=== PATIENT | female | born 1950 | race Caucasian/White ===

== ENCOUNTER → 2020-06-09 09:13 | Outpatient (REF) | payer MEDICARE, OTHER, SELFPAY ==
--- NOTE | 2020-06-09 09:30 | CA_ITS ---
Transthoracic Echocardiogram Patient (Last, First, Middle): Kerry Ortega M Gender: Female Date of : 1950 Age: 69 Procedure Date: 06/09/2020 Procedure Type: Transthoracic Echocardiogram Location: OP Height: 165.1 cm Weight: 86.18 kg BSA: 1.94 m2 Heart Rate: bpm BP: 138 / 78 mmHg Personal Chef: ANURADHA Referring MD: Karri Presley MD Symptoms: I71.2 ASCENDING AA,I47.1 ATRIAL TACHYCARDIA, I35.1 A V DIS Study Quality: Good ECG Rhythm: Sinus Conclusions: - The left ventricular systolic function is normal. The visually estimated ejection fraction is between 65-70%. - There is mild aortic valve regurgitation. - There is mild dilatation of the ascending aorta measuring 4.30 cm. Findings Left Ventricle Normal left ventricular cavity size. There is normal left ventricular wall thickness. The left ventricular systolic function is normal. The visually estimated ejection fraction is between 65-70%. There is no evidence of regional wall motion abnormalities. Diastolic function is normal for age. Right Ventricle Normal right ventricular cavity size and systolic function. Atria The left atrium is normal in size. The right atrium is normal in size. Aortic Valve There is a normal trileaflet aortic valve. There is no aortic valve stenosis. There is mild aortic valve regurgitation. Mitral Valve The mitral valve appears normal. There is no mitral valve regurgitation. There is no mitral valve stenosis. Pulmonic Valve The pulmonic valve was not well visualized. Tricuspid Valve Normal tricuspid valve structure. There is trace tricuspid valve regurgitation. The pulmonary artery systolic pressure is normal. Great Vessels There is mild dilatation of the ascending aorta measuring 4.30 cm. Venous The inferior vena cava is normal in size and collapses greater than 50% with inspiration. Pericardium/Pleural There is no evidence of pericardial effusion. Prior Study Comparison Changes noted compared to prior study dated: 06/06/2020. See comments on ascending aorta. Measurements 2D Linear Measurements IVSd: 0.96 0.6-0.9/0.6-1.0 cm LVIDd: 5.26 3.9-5.3/4.2-5.9 cm LVIDd Index: 2.71 2.4-3.2/2.2-3.1 cm/m2 LVIDs: 3.61 2.0-3.6 cm LVPWd: 0.89 0.7-1.1 cm Ao Root: 3.60 2.1-3.5 cm LA Diam: 3.40 2.7-3.8/3.0-4.0 cm LAIDs Index: 1.75 1.5-2.3 cm/m2 LV Mass: 221.50 67-162/88-224 g LV Mass Index: 114.18 43-95/49-115 g/m2 LVOT Diam: 2.10 3.0+(-)1.3 cm 2D Systolic Function EF 4C: 71.00 >55% EF 2C: 65.90 >55% EF BiP: 68.50 >55% Mitral Valve E'Lateral: 6.96 E'Medial: 5.61 Aortic Valve AoV Pk Deshawn: 1.36 AoV Pk Grad: 7.00 AI Pk Deshawn: 4.16 AI [place]: 2.58 LVOT LVOT Pk Deshawn: 1.29 LVOT Mn Deshawn: 0.87 LVOT VTI: 0.30 LVOT Pk Grad: 7.00 LVOT Mn Grad: 3.00 LVOT Diam: 2.10 LVOT Area: 3.46 Diastolic Function E'Medial: 5.61 E' Laterial: 6.96 Tricuspid Valve TR Pk Deshawn: 2.34 TR Pk Grad: 22.00 RA Press: 3.00 RVSP: 25.00 Great Vessels Aorta Ao Root-2D: 3.60 2.0-3.7 cm Ao Asc: 4.30 2.1-3.4 cm Ao Arch: 3.50 Updated in Other Vendor System with Status of Final Lyndon Mathur MD electronically signed on 06/09/2020 1:35:22 PM with status of Final
== END ==
LOC: HO.CARD 09:13
PROVIDERS: PCP Internal Medicine; Visit Provider Internal Medicine Cardiovascular Disease
DX: I71.2 Thoracic aortic aneurysm, without rupture (principal); I47.1 Supraventricular tachycardia; I35.1 Nonrheumatic aortic (valve) insufficiency
CPT/HCPCS: 93306

== ENCOUNTER → 2020-06-29 09:26 | Outpatient (BNVA) | payer MEDICARE, OTHER, SELFPAY | PROVIDERS: PCP Internal Medicine; Referring Provider Internal Medicine; Visit Provider Internal Medicine Cardiovascular Disease | DX: I71.2 Thoracic aortic aneurysm, without rupture (principal); I35.1 Nonrheumatic aortic (valve) insufficiency; E78.01 Familial hypercholesterolemia; I49.3 Ventricular premature depolarization; I45.2 Bifascicular block | CPT/HCPCS: 93005; 99212 ==

== ENCOUNTER → 2021-06-28 09:16 | Outpatient (REF) | payer MEDICARE, OTHER, SELFPAY ==
--- NOTE | 2021-06-28 09:19 | CA_ITS ---
Transthoracic Echocardiogram Patient (Last, First, Middle): Kerry Ortega M Gender: Female Date of : 1950 Age: 70 Procedure Date: 06/28/2021 Procedure Type: Transthoracic Echocardiogram Location: OP Height: 165.1 cm Weight: 92.08 kg BSA: 1.99 m2 Heart Rate: bpm BP: 127 / 78 mmHg Lard Renderer: VH/CP Referring MD: Karri Presley MD Pool Hand: Karri Presley MD Symptoms: I71.2 - Thoracic aortic aneurysm, without rupture Study Quality: Fair ECG Rhythm: Sinus Conclusions: - 1. Normal LV systolic function with impaired relaxation filling pattern 2. Mild to moderate aortic regurgitation 3. Mildly dilated left atrium 4. Mildly dilated ascending aorta at 4.3 cm 5. Normal RV systolic pressure 6. No perica Findings Left Ventricle Normal left ventricular size, thickness, and systolic function. The visually estimated ejection fraction is between 60-65%. Spectral Doppler is indicative of an impaired relaxation filling pattern. E/E prime ratio is between 8 and 15 consistent with indeterminate filling pressures. Right Ventricle Normal right ventr effusionicular cavity size and systolic function. Atria The left atrium is mildly dilated. There is no evidence of interatrial shunt. The right atrium is normal in size. Aortic Valve The aortic valve structure and function is likely normal. There is no aortic valve stenosis. There is mild to moderate aortic valve regurgitation. Mitral Valve There is mild anterior mitral leaflet thickening. There is trace mitral valve regurgitation. There is no mitral valve stenosis. Pulmonic Valve The pulmonic valve is likely normal. There is trace to mild pulmonic valve regurgitation. Tricuspid Valve Normal tricuspid valve structure. There is trace tricuspid valve regurgitation. Normal right atrial pressure. There is no evidence of pulmonary hypertension. Great Vessels The pulmonary artery was not well visualized. There is mild dilatation of the ascending aorta measuring 4.30 cm. Venous The inferior vena cava is normal in size and collapses greater than 50% with inspiration. Pericardium/Pleural There is no evidence of pericardial effusion. Prior Study Comparison No significant change compared to prior study dated: 06/09/2020. Measurements 2D Linear Measurements IVSd: 1.05 0.6-0.9/0.6-1.0 cm LVIDd: 5.32 3.9-5.3/4.2-5.9 cm LVIDd Index: 2.67 2.4-3.2/2.2-3.1 cm/m2 LVIDs: 3.94 2.0-3.6 cm LVPWd: 1.03 0.7-1.1 cm Ao Root: 3.60 2.1-3.5 cm LA Diam: 3.20 2.7-3.8/3.0-4.0 cm LAIDs Index: 1.61 1.5-2.3 cm/m2 LV Mass: 264.84 67-162/88-224 g LV Mass Index: 133.09 43-95/49-115 g/m2 LVOT Diam: 2.10 3.0+(-)1.3 cm Mitral Valve MV Pk E: 0.50 MV PK A: 0.79 MV Decel Time: 222.00 E/A: 0.60 E'Lateral: 6.53 E'Medial: 5.00 E/E' Med: 10.00 E/E' Lat: 7.70 PHT: 65.00 MVA PHT: 3.38 Decel [place]: 2.26 Aortic Valve AoV Pk Deshawn: 1.47 AoV Mn Deshawn: 1.10 AoV VTI: 0.35 AoV Pk Grad: 9.00 Aov Mn Grad: 5.00 LUIS Cont.VTI: 2.57 AI Pk Deshawn: 4.66 AI [place]: 2.99 LVOT LVOT Pk Deshawn: 1.17 LVOT Mn Deshawn: 0.82 LVOT VTI: 0.26 LVOT Pk Grad: 5.00 LVOT Mn Grad: 3.00 LVOT Diam: 2.10 LVOT Area: 3.46 Diastolic Function MV Pk E: 0.50 MV Pk A: 0.79 E/A: 0.60 E'Medial: 5.00 E/E' Med: 10.00 E' Laterial: 6.53 E/E' Lat: 7.70 Tricuspid Valve TR Pk Deshawn: 1.52 TR Pk Grad: 9.00 RA Press: 3.00 RVSP: 12.00 Great Vessels Aorta Ao Root-2D: 3.60 2.0-3.7 cm Ao Asc: 4.30 2.1-3.4 cm Ao Arch: 3.30 Updated in Other Vendor System with Status of Final Karri Presley MD electronically signed on 06/28/2021 4:08:43 PM with status of Final
== END ==
LOC: HO.CARD 09:16
PROVIDERS: PCP Internal Medicine; Visit Provider Internal Medicine Cardiovascular Disease
DX: I71.2 Thoracic aortic aneurysm, without rupture (principal)
CPT/HCPCS: 93306

== ENCOUNTER → 2021-07-05 10:39 | Outpatient (BNVA) | payer MEDICARE, OTHER, SELFPAY | PROVIDERS: PCP Internal Medicine; Visit Provider Internal Medicine Cardiovascular Disease | DX: I71.2 Thoracic aortic aneurysm, without rupture (principal); I35.1 Nonrheumatic aortic (valve) insufficiency; I49.3 Ventricular premature depolarization; E78.01 Familial hypercholesterolemia | CPT/HCPCS: 93005; 99212 ==

== ENCOUNTER → 2022-07-05 12:34 | Outpatient (REF) | payer MEDICARE, OTHER, SELFPAY ==
--- NOTE | 2022-07-05 12:54 | CA_ITS ---
Transthoracic Echocardiogram Patient (Last, First, Middle): Kerry Ortega M Gender: Female Date of : 1950 Age: 71 Procedure Date: 07/05/2022 Procedure Type: Transthoracic Echocardiogram Location: OP Height: 165.1 cm Weight: 96.16 kg BSA: 2.03 m2 Heart Rate: bpm BP: 178 / 82 mmHg Accounting Generalist: NESHA Referring MD: Karri Presley MD Symptoms: I71.2 - Thoracic aortic aneurysm, without rupture Study Quality: Adequate ECG Rhythm: Sinus Conclusions: - The left ventricular systolic function is normal. The calculated ejection fraction is 64% by biplane method. - There is mild aortic valve regurgitation. - There is mild dilatation of the sinuses of Valsalva measuring 4.16 cm and mild dilatation of the ascending aorta measuring 4.30 cm. Findings Left Ventricle Normal left ventricular cavity size. There is mildly increased left ventricular wall thickness. The left ventricular systolic function is normal. The calculated ejection fraction is 64% by biplane method. There is no evidence of regional wall motion abnormalities. Diastolic function is normal for age. There is moderate septal asymmetric hypertrophy. Right Ventricle Normal right ventricular cavity size and systolic function. Atria Top-normal left atrial size. The right atrium is normal in size. Aortic Valve There is a normal trileaflet aortic valve. There is no aortic valve stenosis. There is mild aortic valve regurgitation. Mitral Valve The mitral valve appears normal. There is trace mitral valve regurgitation. There is no mitral valve stenosis. Pulmonic Valve The pulmonic valve is likely normal. Tricuspid Valve There is trace tricuspid valve regurgitation. Tricuspid regurgitation envelope is inadequate for calculation of right ventricular systolic pressure. Great Vessels There is mild dilatation of the sinuses of Valsalva measuring 4.16 cm and mild dilatation of the ascending aorta measuring 4.30 cm. Venous The inferior vena cava is normal in size and collapses greater than 50% with inspiration. Pericardium/Pleural There is no evidence of pericardial effusion. Prior Study Comparison No significant change compared to prior study dated: 06/28/2021. Measurements 2D Linear Measurements IVSd: 1.35 0.6-0.9/0.6-1.0 cm LVIDd: 4.76 3.9-5.3/4.2-5.9 cm LVIDd Index: 2.34 2.4-3.2/2.2-3.1 cm/m2 LVIDs: 3.49 2.0-3.6 cm LVPWd: 1.05 0.7-1.1 cm LA Diam: 3.50 2.7-3.8/3.0-4.0 cm LAIDs Index: 1.72 1.5-2.3 cm/m2 LV Mass: 269.58 67-162/88-224 g LV Mass Index: 132.80 43-95/49-115 g/m2 LVOT Diam: 2.20 3.0+(-)1.3 cm 2D Systolic Function EF 4C: 60.60 >55% EF 2C: 65.90 >55% EF BiP: 63.70 >55% Mitral Valve MV Pk E: 0.66 MV PK A: 0.72 MV Decel Time: 202.00 E/A: 0.90 E'Lateral: 8.92 E'Medial: 5.98 E/E' Med: 11.00 E/E' Lat: 7.40 PHT: 59.00 MVA PHT: 3.73 Decel [place]: 3.27 Aortic Valve AoV Pk Deshawn: 1.31 AoV Mn Deshawn: 0.98 AoV VTI: 0.32 AoV Pk Grad: 7.00 Aov Mn Grad: 4.00 LUIS Cont.VTI: 2.99 AI Pk Deshawn: 4.94 AI [place]: 3.43 LVOT LVOT Pk Deshawn: 1.06 LVOT Mn Deshawn: 0.68 LVOT VTI: 0.25 LVOT Pk Grad: 4.00 LVOT Mn Grad: 2.00 LVOT Diam: 2.20 LVOT Area: 3.80 Diastolic Function MV Pk E: 0.66 MV Pk A: 0.72 E/A: 0.90 E'Medial: 5.98 E/E' Med: 11.00 E' Laterial: 8.92 E/E' Lat: 7.40 Right Ventricle TAPSE (mm): 25.80 TVS' Deshawn: 9.25 Tricuspid Valve RA Press: 3.00 Great Vessels Aorta Sinus of Valsalva: 4.16 2.0-3.[address] [place]: 3.30 1.7-3.4 cm Ao Asc: 4.30 2.1-3.4 cm Updated in Other Vendor System with Status of Final Lyndon Mathur MD electronically signed on 07/06/2022 10:58:26 AM with status of Final
== END ==
LOC: HO.CARD 12:34
PROVIDERS: Visit Provider Internal Medicine Cardiovascular Disease
DX: I71.20 Thoracic aortic aneurysm, without rupture, unspecified (principal)
CPT/HCPCS: 93306

== ENCOUNTER → 2022-07-07 10:30 | Outpatient (BNVA) | payer MEDICARE, OTHER, SELFPAY | PROVIDERS: PCP Internal Medicine; Visit Provider Internal Medicine Cardiovascular Disease | DX: I71.20 Thoracic aortic aneurysm, without rupture, unspecified (principal); I35.1 Nonrheumatic aortic (valve) insufficiency; I49.3 Ventricular premature depolarization; I45.2 Bifascicular block; E78.01 Familial hypercholesterolemia | CPT/HCPCS: 93005; 99212 ==

== ENCOUNTER 2023-03-06 13:11 | Outpatient (AMB) | payer MEDICARE, OTHER, SELFPAY ==
[2023-03-06 13:14] VITALS: BP 144/88; PULSE 88; BMI 35.2
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
== END 2023-03-06 13:55 | disposition home or self-care (01) ==
PROVIDERS: Visit Provider Internal Medicine Cardiovascular Disease
DX: R09.89 Other specified symptoms and signs involving the circulatory and respiratory systems (principal); I49.3 Ventricular premature depolarization; I71.20 Thoracic aortic aneurysm, without rupture, unspecified
CPT/HCPCS: 99214

== ENCOUNTER → 2023-03-06 13:11 | Outpatient (BNVA) | payer MEDICARE, OTHER, SELFPAY | PROVIDERS: Visit Provider Internal Medicine Cardiovascular Disease | DX: R09.89 Other specified symptoms and signs involving the circulatory and respiratory systems (principal); I49.3 Ventricular premature depolarization; I71.20 Thoracic aortic aneurysm, without rupture, unspecified | CPT/HCPCS: 99212 ==

== ENCOUNTER → 2023-07-06 09:38 | Outpatient (REF) | payer MEDICARE, OTHER, SELFPAY ==
--- NOTE | 2023-07-06 09:41 | CA_ITS ---
Transthoracic Echocardiogram Patient (Last, First, Middle): Kerry Ortega M Gender: Female Date of : 1950 Age: 72 Procedure Date: 07/06/2023 Procedure Type: Transthoracic Echocardiogram Location: OP Height: 165.1 cm Weight: 102.06 kg BSA: 2.08 m2 Heart Rate: 65 bpm BP: 160 / 88 mmHg Barrel Loader And Cleaner: SB Referring MD: Karri Presley MD Symptoms: I71.2 - Thoracic aortic aneurysm, without rupture Study Quality: Fair but adequate ECG Rhythm: Sinus Conclusions: - 1. Normal LV ejection fraction of 60 65% with impaired relaxation filling pattern 2. Mildly dilated left atrium 3. [id number] aortic regurgitation 4. Mildly dilated ascending aorta at 4.1 cm 5. No gross pericardial effusion Findings Left Ventricle Normal left ventricular size, thickness, and systolic function. The visually estimated ejection fraction is between 60-65%. Spectral Doppler is indicative of an impaired relaxation filling pattern. E/E prime ratio is between 8 and 15 consistent with indeterminate filling pressures. Peak GLS is -16.9%, mildly reduced. Right Ventricle Normal right ventricular cavity size and systolic function. Atria The left atrium is mildly dilated. Interatrial shunt cannot be excluded. The right atrium is normal in size. Aortic Valve Normal aortic valve structure and function. There is no aortic valve stenosis. There is mild to moderate aortic valve regurgitation. Mitral Valve Normal mitral valve structure and function. There is trace mitral valve regurgitation. There is no mitral valve stenosis. Pulmonic Valve The pulmonic valve is likely normal. There is trace pulmonic valve regurgitation. Tricuspid Valve Normal tricuspid valve structure. There is trace tricuspid valve regurgitation. The right ventricular systolic pressure is normal. The right ventricular systolic pressure is 24 mmHg. Normal right atrial pressure. There is no evidence of pulmonary hypertension. Great Vessels The pulmonary artery was not well visualized. There is mild dilatation of the ascending aorta measuring 4.10 cm. Venous The inferior vena cava is normal in size and collapses greater than 50% with inspiration. Pericardium/Pleural There is no evidence of pericardial effusion. Prior Study Comparison No significant change compared to prior study dated: 07/05/2022. Measurements 2D Linear Measurements IVSd: 1.21 0.6-0.9/0.6-1.0 cm LVIDd: 4.78 3.9-5.3/4.2-5.9 cm LVIDd Index: 2.30 2.4-3.2/2.2-3.1 cm/m2 LVIDs: 3.54 2.0-3.6 cm LVPWd: 0.95 0.7-1.1 cm LA Diam: 3.80 2.7-3.8/3.0-4.0 cm LAIDs Index: 1.83 1.5-2.3 cm/m2 LV Mass: 227.03 67-162/88-224 g LV Mass Index: 109.15 43-95/49-115 g/m2 LVOT Diam: 2.20 3.0+(-)1.3 cm Mitral Valve MV Pk E: 0.70 MV PK A: 0.70 MV Decel Time: 204.00 E/A: 1.00 E'Lateral: 7.72 E'Medial: 5.00 E/E' Med: 14.10 E/E' Lat: 9.10 PHT: 60.00 MVA PHT: 3.67 Decel [place]: 3.44 Aortic Valve AoV Pk Deshawn: 1.28 AoV Pk Grad: 7.00 LUIS: 3.38 AI Pk Deshawn: 4.62 AI VTI: 2.37 AI [place]: 2.73 LVOT LVOT Pk Deshawn: 1.19 LVOT Mn Deshawn: 0.84 LVOT VTI: 0.28 LVOT Pk Grad: 6.00 LVOT Mn Grad: 3.00 LVOT Diam: 2.20 LVOT Area: 3.80 Diastolic Function MV Pk E: 0.70 MV Pk A: 0.70 E/A: 1.00 E'Medial: 5.00 E/E' Med: 14.10 E' Laterial: 7.72 E/E' Lat: 9.10 Right Ventricle TAPSE (mm): 19.90 TVS' Deshawn: 11.30 Tricuspid Valve TR Pk Deshawn: 2.27 TR Pk Grad: 21.00 RA Press: 3.00 RVSP: 24.00 Great Vessels Aorta Sinus of Valsalva: 4.10 2.0-3.5 cm Ao Asc: 4.10 2.1-3.4 cm Ao Arch: 2.90 Ao Desc: 2.10 Pulmonary Valve PV Pk Deshawn: 0.73 Peak PV Grad: 2.00 Updated in Other Vendor System with Status of Final Karri Presley MD electronically signed on 07/07/2023 1:44:23 PM with status of Final
== END ==
LOC: HO.CARD 09:38
PROVIDERS: PCP Internal Medicine; Visit Provider Internal Medicine Cardiovascular Disease
DX: I71.20 Thoracic aortic aneurysm, without rupture, unspecified (principal)
CPT/HCPCS: 93306; 93356

== ENCOUNTER → 2023-07-06 09:41 | Outpatient (BNV) | payer MEDICARE, OTHER, SELFPAY | PROVIDERS: PCP Internal Medicine; Visit Provider Internal Medicine Cardiovascular Disease | DX: I35.1 Nonrheumatic aortic (valve) insufficiency (principal) | CPT/HCPCS: 93306 ==

== ENCOUNTER 2023-07-10 10:38 | Outpatient (AMB) | payer MEDICARE, OTHER, SELFPAY ==
[2023-07-10 10:44] VITALS: BP 120/76; PULSE 72; BMI 35.2
--- NOTE | 2023-07-10 10:44 | MHC.OFFVIS ---
Intake Vital Signs 07/10/23 10:44 Height 5 ft 6 in Weight 218 lb 4.122 oz BMI 35.2 BP 120/76 Blood Pressure Location Lt brachial Position Sitting Pulse 72 Intake Visit Reasons: 4 MON FUP AFTER ECHO Intake Note: 4 month follow-up after echo with ekg hearts doing ok Analytical Lab Technician Required: No Allergies alirocumab [From Praluent Pen] Allergy (Intermediate, Verified 06/29/20 15:16) rash amoxicillin [Augmentin] Allergy (Unknown, Verified 06/29/20 10:26) unknown atorvastatin [Lipitor] Allergy (Unknown, Verified 05/30/19 00:00) myalgia cephalexin [Keflex] Allergy (Unknown, Verified 06/29/20 10:26) unknown clavulanic acid [Augmentin] Allergy (Unknown, Verified 06/29/20 10:26) unknown cyclobenzaprine [From Flexeril] Allergy (Unknown, Verified 06/29/20 10:26) unknown ezetimibe [Zetia] Allergy (Unknown, Verified 05/30/19 00:00) myalgia fentanyl Allergy (Unknown, Verified 06/29/20 10:26) unknown lamotrigine [From Lamictal] Allergy (Unknown, Unverified 04/23/20 17:57) ANAPHYLAXIS latex [Latex] Allergy (Unknown, Unverified 04/23/20 17:57) HIVES metaxalone [From Skelaxin] Allergy (Unknown, Unverified 04/23/20 17:57) ANAPHYLAXIS montelukast [Singulair] Allergy (Unknown, Verified 06/29/20 10:26) unknown naratriptan Allergy (Unknown, Verified 06/29/20 10:26) unknown oxcarbazepine [Trileptal] Allergy (Unknown, Verified 06/29/20 10:26) unknown pneumococcal vaccine [Pneumococcal Vaccine] Allergy (Unknown, Unverified 04/23/20 17:57) SWELLING pravastatin Allergy (Unknown, Verified 05/30/19 00:00) myalgia rosuvastatin [Crestor] Allergy (Unknown, Verified 05/30/19 00:00) myalgia simvastatin Allergy (Unknown, Verified 05/30/19 00:00) myalgia Sulfa (Sulfonamide Antibiotics) Allergy (Unknown, Verified 06/29/20 10:26) unknown sumatriptan [From Imitrex] Allergy (Unknown, Unverified 04/23/20 17:57) INVOLUNTARY SPASMS trimethoprim [From Bactrim] Allergy (Unknown, Unverified 04/23/20 17:57) ANAPHYLAXIS From Keflex Allergy (Unknown, Uncoded 04/23/20 17:57) ANAPHYLAXIS From Singulair Allergy (Unknown, Uncoded 04/23/20 17:57) ANAPHYLAXIS From Tolectin Allergy (Unknown, Uncoded 04/23/20 17:57) HIVES Latex Gloves Allergy (Unknown, Uncoded 06/29/20 10:26) Unknown Mycelex Allergy (Unknown, Uncoded 06/29/20 10:26) unknown Mysoline Allergy (Unknown, Uncoded 06/29/20 10:26) unknown Medication List - Last Reconciled 07/10/23 by Karri Presley MD almotriptan malate 12.5 mg PO Q4H PRN buspirone 15 mg PO TID clonazepam 0.5 mg PO PRN denosumab mg subcut epinephrine IM estradiol 0.01%(0.1mg/gram) vaginal evolocumab (Repatha SureClick) 140 mg subcut Q2W 90 days melatonin 3 mg PO .qhs metoprolol succinate ER 50 mg PO DAILY mupirocin 2% topical TID omeprazole 40 mg PO sertraline 200 mg PO DAILY tizanidine 6 mg PO PRN topiramate 100 mg PO BID HPI HPI Comments History of Present Illness Details Kerry comes for follow-up. She denies any new cardiac complaints except for occasional palpitations consistent with PVCs. She also has occasional fast heart rate for which she takes extra metoprolol. No exertional chest pain or shortness of breath. Blood pressure still remaining elevated mostly rising in the early afternoon and going up to 170 systolic in the nighttime. Recent echocardiogram shows stable ascending aortic aneurysm and stable aortic regurgitation. No lightheadedness, syncope. No heart failure symptoms. [facility] Medical History Bifascicular block PVCs (premature ventricular contractions) Selective immunoglobulin A deficiency Statin intolerance Heterozygous familial hypercholesterolemia Aortic regurgitation Ascending aortic aneurysm Surgical History History of laparoscopic cholecystectomy (~11/2018) Family History Father History of heart bypass surgery CVD (cardiovascular disease) Mother No problems noted. Review of Systems Const Denies chills, Denies fatigue, Denies fever(s), Denies frequent falls, Denies weakness, Denies weight gain and Denies weight loss ENT Denies dizziness Card Denies chest pain, Denies leg edema, Denies lightheadedness, Denies palpitations, Denies dyspnea, Denies dyspnea on exertion, Denies orthopnea and Denies other (loss of consciousness) Resp Denies cough, Denies dyspnea and Denies dyspnea on exertion GI Denies hematochezia and Denies change in stool character Musc Denies abnormal gait, Denies muscle weakness, Denies numbness, Denies radiating pain into limb and Denies tingling Neuro Denies abnormal gait, Denies dizziness, Denies frequent falls, Denies numbness, Denies tingling and Denies weakness Endo Denies fatigue and Denies palpitations Physical Exam Vital Signs: Last Vital Signs Pulse 72 07/10/23 10:44 BP 120/76 07/10/23 10:44 BMI result Body Mass Index 35.2 Const General: cooperative, comfortable, alert and awake Nutritional Appearance: obese Orientation/consciousness: patient oriented x3 Limitations: no limitations Eyes General: appearance normal, both eyes and all related structures Neck Neck: Yes trachea midline, Yes supple and Yes no JVD Carotids: other ( no carotid bruit) Chest Chest palpation & inspection: normal inspection of the chest Resp Effort & Inspection: normal respiratory effort Auscultation: clear to auscultation bilaterally Cardio Palpation: normal PMI Rate: regular rate Rhythm: regular rhythm Heart sounds: S1 normal heart sound present, S2 normal heart sound present and Murmur heart sound present ( early diastolic murmur best heard in the left intercostal space in leaning) Peripheral pulses: Peripheral pulses 2+ throughout GI Inspection: Yes obesity Auscultation: normal bowel sounds Skin General skin exam: no rashes or lesions noted Neuro General: patient oriented x3 and no focal motor deficits Extrem General: Yes no clubbing, cyanosis or edema Psych Appearance: grossly normal Affect: Anxious affect present Office Procedures EKG Details: EKG shows normal sinus rhythm with right bundle-branch block and left anterior fascicular block with voltage criteria for LVH, unchanged from before 27005-[id number], Complete Assessment & Plan Assessment & Plan (1) Labile blood pressure: Code(s): R09.89 - Other specified symptoms and signs involving the circulatory and respiratory systems Plan: Patient with labile blood pressures still having elevated blood pressure in the evening time. Importance of good control of this was discussed. Stress mitigation strategies to be pursued. Advise valsartan 40 mg at noon time. Advised to monitor blood pressure at home. Follow-up basic metabolic profile in 2 weeks time. Continue metoprolol. (2) Ascending aortic aneurysm: Code(s): I71.2 - Thoracic aortic aneurysm, without rupture Plan: Mild ascending aortic aneurysm which has remained stable for a long time. Continue to monitor by echocardiogram on annual basis. No change in therapy. Continue aggressive blood pressure control as above. Continue aggressive control of cholesterol as well. (3) Heterozygous familial hypercholesterolemia: Code(s): E78.01 - Familial hypercholesterolemia Plan: Familial hyperlipidemia currently on PCSK9 inhibitor therapy. Tolerating this therapy well. Advised lipid panel near future to assess response. Importance of control of this to reduce future vascular events was discussed. She understands and agrees. (4) PVCs (premature ventricular contractions): Code(s): I49.3 - Ventricular premature depolarization Plan: Highly symptomatic PVCs which remain predominantly suppressed on metoprolol therapy. Doing well with it. Avoidance of stimulants was discussed. Stress mitigation strategies was advised. (5) Bifascicular block: Code(s): I45.2 - Bifascicular block Plan: Bifascicular block on EKG, chronic. No change in treatment or interventions required. Follow annually by EKG. Will follow up in the clinic in 1 year's time, sooner p.r.n.. Thank you for allowing me to partake in her care Orders: Orders Lipid Panel 2 Weeks E78.01 - Familial hypercholesterolemia, I25.10 - Atherosclerotic heart disease of [place] coronary artery without angina pectoris CA echo transthoracic complete 50 Weeks I71.2 - Thoracic aortic aneurysm, without rupture Basic Metabolic Panel 2 Weeks R09.89 - Other specified symptoms and signs involving the circulatory and respiratory systems Medications: New valsartan At noon time 40 mg PO DAILY 30 tabs 11RF 30 days Coding Level of Care Code Est Pt Level 4 (02989) Diagnoses Labile blood pressure R09.89 Ascending aortic aneurysm I71.2 Heterozygous familial hypercholesterolemia E78.01 PVCs (premature ventricular contractions) I49.3 Bifascicular block I45.2 CPT Codes EKG - CPT: 95605-[id number], Complete ([id number])
== END 2023-07-10 11:38 | disposition home or self-care (01) ==
PROVIDERS: Visit Provider Internal Medicine Cardiovascular Disease
DX: R09.89 Other specified symptoms and signs involving the circulatory and respiratory systems (principal); I71.20 Thoracic aortic aneurysm, without rupture, unspecified; E78.01 Familial hypercholesterolemia; I49.3 Ventricular premature depolarization; I45.2 Bifascicular block
CPT/HCPCS: 93010; 99214

== ENCOUNTER → 2023-07-10 10:38 | Outpatient (BNVA) | payer MEDICARE, OTHER, SELFPAY | PROVIDERS: Visit Provider Internal Medicine Cardiovascular Disease | DX: R09.89 Other specified symptoms and signs involving the circulatory and respiratory systems (principal); I71.20 Thoracic aortic aneurysm, without rupture, unspecified; I49.3 Ventricular premature depolarization; I45.2 Bifascicular block; E78.01 Familial hypercholesterolemia | CPT/HCPCS: 93005; 99212 ==

== ENCOUNTER 2023-07-26 06:58 | Outpatient (REF) | payer MEDICARE, OTHER, SELFPAY ==
[2023-07-26 12:03] LABS: Anion Gap 13 (12-20); Blood Urea Nitrogen 11 mg/dL (9-16); Calcium 9.1 mg/dL (8.4-10.2); Carbon Dioxide 24 mmol/L (22-29); Chloride 110 mmol/L (96-108); Cholesterol 228 mg/dL (<200); Estimated Glomerular Filt Rate > 60; Glucose Random 99 mg/dL (60-115); HDL Cholesterol 64 mg/dL (>40); LDL Cholesterol Calculated 135 mg/dL (<100); Potassium 3.5 mmol/L (3.3-5.1); Sodium 143 mmol/L (135-145); Triglycerides 149 mg/dL (<150)
== END 2023-07-26 06:59 | disposition home or self-care (01) ==
LOC: HO.HMGCLDS 06:58
PROVIDERS: PCP Internal Medicine; Visit Provider Internal Medicine Cardiovascular Disease
DX: I25.10 Atherosclerotic heart disease of native coronary artery without angina pectoris (principal); E78.01 Familial hypercholesterolemia; R09.89 Other specified symptoms and signs involving the circulatory and respiratory systems
CPT/HCPCS: 36415; 80048; 80061

== ENCOUNTER 2023-10-25 09:43 | Outpatient (AMB) | payer MEDICARE, OTHER, SELFPAY ==
[2023-10-25 09:48] VITALS: BP 128/76; PULSE 82; BMI 34.9
--- NOTE | 2023-10-25 09:48 | A.OFFVIS_ITS ---
Intake Vital Signs 10/25/23 09:48 Height 5 ft 6 in Weight 216 lb 0.848 oz BMI 34.9 BP 128/76 Blood Pressure Location Lt brachial Position Sitting Pulse 82 Intake Visit Reasons: Discuss valsartan /BP Intake Note: Patient requested follow-up to review BP after increasing Valsartan Cloth Hauler Required: No Allergies amlodipine Allergy (Severe, Verified 09/06/23 15:52) Angioedema alirocumab [From Praluent Pen] Allergy (Intermediate, Verified 06/29/20 15:16) rash amoxicillin [Augmentin] Allergy (Unknown, Verified 06/29/20 10:26) unknown atorvastatin [Lipitor] Allergy (Unknown, Verified 05/30/19 00:00) myalgia cephalexin [Keflex] Allergy (Unknown, Verified 06/29/20 10:26) unknown clavulanic acid [Augmentin] Allergy (Unknown, Verified 06/29/20 10:26) unknown cyclobenzaprine [From Flexeril] Allergy (Unknown, Verified 06/29/20 10:26) unknown ezetimibe [Zetia] Allergy (Unknown, Verified 05/30/19 00:00) myalgia fentanyl Allergy (Unknown, Verified 06/29/20 10:26) unknown lamotrigine [From Lamictal] Allergy (Unknown, Unverified 04/23/20 17:57) ANAPHYLAXIS latex [Latex] Allergy (Unknown, Unverified 04/23/20 17:57) HIVES metaxalone [From Skelaxin] Allergy (Unknown, Unverified 04/23/20 17:57) ANAPHYLAXIS montelukast [Singulair] Allergy (Unknown, Verified 06/29/20 10:26) unknown naratriptan Allergy (Unknown, Verified 06/29/20 10:26) unknown oxcarbazepine [Trileptal] Allergy (Unknown, Verified 06/29/20 10:26) unknown pneumococcal vaccine [Pneumococcal Vaccine] Allergy (Unknown, Unverified 04/23/20 17:57) SWELLING pravastatin Allergy (Unknown, Verified 05/30/19 00:00) myalgia rosuvastatin [Crestor] Allergy (Unknown, Verified 05/30/19 00:00) myalgia simvastatin Allergy (Unknown, Verified 05/30/19 00:00) myalgia Sulfa (Sulfonamide Antibiotics) Allergy (Unknown, Verified 06/29/20 10:26) unknown sumatriptan [From Imitrex] Allergy (Unknown, Unverified 04/23/20 17:57) INVOLUNTARY SPASMS trimethoprim [From Bactrim] Allergy (Unknown, Unverified 04/23/20 17:57) ANAPHYLAXIS From Keflex Allergy (Unknown, Uncoded 04/23/20 17:57) ANAPHYLAXIS From Singulair Allergy (Unknown, Uncoded 04/23/20 17:57) ANAPHYLAXIS From Tolectin Allergy (Unknown, Uncoded 04/23/20 17:57) HIVES Latex Gloves Allergy (Unknown, Uncoded 06/29/20 10:26) Unknown Mycelex Allergy (Unknown, Uncoded 06/29/20 10:) unknown Mysoline Allergy (Unknown, Uncoded 06/29/20 10:) unknown Medication List - Last Reconciled 10/25/23 by Karri Presley MD almotriptan malate 12.5 mg PO Q4H PRN buspirone 15 mg PO TID clonazepam 0.5 mg PO PRN denosumab mg subcut epinephrine IM estradiol 0.01%(0.1mg/gram) vaginal evolocumab (Repatha SureClick) 140 mg subcut Q2W 90 days melatonin 3 mg PO .qhs metoprolol succinate ER 50 mg PO DAILY mupirocin 2% topical TID omeprazole 40 mg PO sertraline 175 mg PO DAILY tizanidine 6 mg PO PRN topiramate 100 mg PO BID valsartan 80 mg PO BID HPI HPI Comments History of Present Illness Details Kerry comes for follow-up to check her blood pressure. Her blood pressure recordings have been labile but generally most of them are below systolic 140. She has not having any symptoms. No chest pain, lightheadedness, syncope. No heart failure symptoms. She has been getting more short of breath but her limiting factor is back pain with any activity which limits her from exercising. She does notice exertional shortness of breath when she goes up a flight of stairs. [facility] Medical History Bifascicular block PVCs (premature ventricular contractions) Selective immunoglobulin A deficiency Statin intolerance Heterozygous familial hypercholesterolemia Aortic regurgitation Ascending aortic aneurysm Surgical History History of laparoscopic cholecystectomy (~11/2018) Family History Father History of heart bypass surgery CVD (cardiovascular disease) Mother No problems noted. Review of Systems Const Denies chills, Denies fatigue, Denies fever(s), Denies frequent falls, Denies weakness, Denies weight gain and Denies weight loss ENT Denies dizziness Card Denies chest pain, Denies leg edema, Denies lightheadedness, Denies palpitations, Denies dyspnea, Denies dyspnea on exertion, Denies orthopnea and Denies other (loss of consciousness) Resp Denies cough, Denies dyspnea and Denies dyspnea on exertion GI Denies hematochezia and Denies change in stool character Musc Denies abnormal gait, Denies muscle weakness, Denies numbness, Denies radiating pain into limb and Denies tingling Neuro Denies abnormal gait, Denies dizziness, Denies frequent falls, Denies numbness, Denies tingling and Denies weakness Endo Denies fatigue and Denies palpitations Physical Exam Vital Signs: Last Vital Signs Pulse 82 10/25/23 09:48 BP 128/76 10/25/23 09:48 BMI result Body Mass Index 34.9 Const General: cooperative, comfortable, alert and awake Nutritional Appearance: obese Orientation/consciousness: patient oriented x3 Limitations: no limitations Eyes General: appearance normal, both eyes and all related structures Neck Neck: Yes trachea midline, Yes supple and Yes no JVD Carotids: other ( no carotid bruit) Chest Chest palpation & inspection: normal inspection of the chest Resp Effort & Inspection: normal respiratory effort Auscultation: clear to auscultation bilaterally Cardio Palpation: normal PMI Rate: regular rate Rhythm: regular rhythm Heart sounds: S1 normal heart sound present, S2 normal heart sound present and Murmur heart sound present ( early diastolic murmur best heard in the left intercostal space in leaning) Peripheral pulses: Peripheral pulses 2+ throughout GI Inspection: Yes obesity Auscultation: normal bowel sounds Skin General skin exam: no rashes or lesions noted Neuro General: patient oriented x3 and no focal motor deficits Extrem General: Yes no clubbing, cyanosis or edema Psych Appearance: grossly normal Affect: Anxious affect present Assessment & Plan Assessment & Plan (1) Labile blood pressure: Code(s): R09.89 - Other specified symptoms and signs involving the circulatory and respiratory systems Plan: Labile blood pressure which is generally well controlled with twice a day valsartan therapy. I have also advised her to split her metoprolol to twice a day. Continue monitor blood pressure but not so frequently as this may affect t he blood pressure readings. Also treatment of her anxiety was discussed. Stress mitigation strategies pursued. Low-salt diet and adequate fluid intake was discussed. Orthostatic precautions were discussed. Will follow up in 1 month's time with nurse visit and calibrate her home blood pressure machine. (2) Ascending aortic aneurysm: Code(s): I71.2 - Thoracic aortic aneurysm, without rupture Plan: Mild ascending aortic aneurysm with aortic regurgitation which has remained stable. No interventions required. Continue control of blood pressure with goal blood pressure generally less than 140 systolic would be adequate given her markedly labile blood pressures. Advised to avoid sudden strenuous isometric exercise. Follow up in the clinic in July. Thank you for allowing me to partake in the care Coding Level of Care Code Est Pt Level 4 (71352) Diagnoses Labile blood pressure R09.89 Ascending aortic aneurysm I71.2
== END 2023-10-25 10:15 | disposition home or self-care (01) ==
PROVIDERS: PCP Internal Medicine; Visit Provider Internal Medicine Cardiovascular Disease
DX: R09.89 Other specified symptoms and signs involving the circulatory and respiratory systems (principal); I71.20 Thoracic aortic aneurysm, without rupture, unspecified
CPT/HCPCS: 99214

== ENCOUNTER → 2023-10-25 09:43 | Outpatient (BNVA) | payer MEDICARE, OTHER, SELFPAY | PROVIDERS: PCP Internal Medicine; Visit Provider Internal Medicine Cardiovascular Disease | DX: R09.89 Other specified symptoms and signs involving the circulatory and respiratory systems (principal); I71.40 Abdominal aortic aneurysm, without rupture, unspecified | CPT/HCPCS: 99212 ==

== ENCOUNTER → 2023-11-22 10:05 | Outpatient (BNVA) | payer MEDICARE, OTHER, SELFPAY | PROVIDERS: PCP Internal Medicine; Visit Provider Internal Medicine Cardiovascular Disease ==

== ENCOUNTER → 2024-07-09 10:39 | Outpatient (REF) | payer MEDICARE, OTHER, SELFPAY ==
--- NOTE | 2024-07-09 10:46 | CA_ITS ---
Transthoracic Echocardiogram Patient (Last, First, Middle): Kerry Ortega M Gender: Female Date of : 1950 Age: 73 Procedure Date: 07/09/2024 Procedure Type: Transthoracic Echocardiogram Location: OP Height: 165.1 cm Weight: 97.98 kg BSA: 2.04 m2 Heart Rate: 77 bpm BP: 124 / 68 mmHg Admissions Evaluator: SB Referring MD: Karri Presley MD Symptoms: I71.2 - Thoracic aortic aneurysm, without rupture Study Quality: Adequate ECG Rhythm: Sinus Conclusions: - The left ventricular systolic function is normal. The calculated ejection fraction is 64% by biplane method. - There is mild aortic valve regurgitation. - There is mild dilatation of the ascending aorta measuring 4.30 cm. Findings Left Ventricle Normal left ventricular cavity size. The left ventricular systolic function is normal. The calculated ejection fraction is 64% by biplane method. There is no evidence of regional wall motion abnormalities. Diastolic function is normal for age. There is mild septal asymmetric hypertrophy. Right Ventricle Normal right ventricular cavity size and systolic function. Atria Both atria are normal in size. Aortic Valve There is a normal trileaflet aortic valve. There is no aortic valve stenosis. There is mild aortic valve regurgitation. Mitral Valve The mitral valve appears normal. There is trace mitral valve regurgitation. There is no mitral valve stenosis. Pulmonic Valve The pulmonic valve is likely normal. Tricuspid Valve Normal tricuspid valve structure. There is no tricuspid valve regurgitation. Tricuspid regurgitation envelope is inadequate for calculation of right ventricular systolic pressure. Great Vessels The aortic arch is normal in size. There is mild dilatation of the ascending aorta measuring 4.30 cm. Venous The inferior vena cava is normal in size and collapses greater than 50% with inspiration. Pericardium/Pleural There is no evidence of pericardial effusion. Prior Study Comparison No significant change compared to prior study dated: 07/06/2023. Measurements 2D Linear Measurements IVSd: 1.25 0.6-0.9/0.6-1.0 cm LVIDd: 4.52 3.9-5.3/4.2-5.9 cm LVIDd Index: 2.22 2.4-3.2/2.2-3.1 cm/m2 LVIDs: 3.09 2.0-3.6 cm LA Diam: 3.50 2.7-3.8/3.0-4.0 cm LAIDs Index: 1.72 1.5-2.3 cm/m2 LVOT Diam: 2.20 3.0+(-)1.3 cm 2D Systolic Function EF 4C: 62.60 >55% EF 2C: 67.70 >55% EF BiP: 63.80 >55% Mitral Valve MV Pk E: 0.45 MV PK A: 0.59 MV Decel Time: 217.00 E/A: 0.80 E'Lateral: 7.40 E'Medial: 5.55 E/E' Med: 8.00 E/E' Lat: 6.00 PHT: 64.00 MVA PHT: 3.44 Decel [place]: 2.05 Aortic Valve AoV Pk Deshawn: 1.37 AoV Mn Deshawn: 0.94 AoV VTI: 0.29 AoV Pk Grad: 8.00 Aov Mn Grad: 4.00 LUIS Cont.VTI: 3.20 AI Pk Deshawn: 4.25 AI VTI: 2.20 AI [place]: 2.49 LVOT LVOT Pk Deshawn: 1.16 LVOT Mn Deshawn: 0.82 LVOT VTI: 0.25 LVOT Pk Grad: 5.00 LVOT Mn Grad: 3.00 LVOT Diam: 2.20 LVOT Area: 3.80 Diastolic Function MV Pk E: 0.45 MV Pk A: 0.59 E/A: 0.80 E'Medial: 5.55 E/E' Med: 8.00 E' Laterial: 7.40 E/E' Lat: 6.00 Right Ventricle TAPSE (mm): 18.00 TVS' Deshawn: 10.40 Tricuspid Valve RA Press: 3.00 Great Vessels Aorta Sinus of Valsalva: 3.90 2.0-3.5 cm Ao Asc: 4.30 2.1-3.4 cm Ao Arch: 2.90 Pulmonary Valve PV Pk Deshawn: 0.66 Peak PV Grad: 2.00 Updated in Other Vendor System with Status of Final Lyndon Mathur MD electronically signed on 07/10/2024 8:52:15 AM with status of Final
--- OUTSIDE RECORDS SUMMARY | 2024-07-16 12:42 | XMS_ITS | Continuity of Care Document ---
Author Organization [facility] Address [address] [place] [address], [address] [place] [address]- Care Team Providers Care Hall Monitor Name Role Phone Jose FELDMAN, Thomas Primary Care Physici an [place] [facility] [id number] Date(s): 05/29/24 - 06/28/24 [facility] [address] [facility], [address] [place], [place] [address] Attending Physician: Maida Varghese Admitting Physician: Maida Varghese Referring Physician: Maida Varghese Encounter Type: Triage Allergies, Adverse Reactions, Alerts Substance Criticality Severity Reaction Reaction Severity Status clindamycin Facial swelling Ac tive erythromycin Active amoxicillin-clavulana te <not entered> Active azithromycin <not entered> Act aaron cephalexin <not entered> Activ e sulfamethoxazole-trim ethoprim <not entered> Active pravastatin Active simvastatin Active cyclobenzaprine <not entered> Active metaxalone <not entered> Activ e clotrimazole <not entered> Act aaron atorvastatin <not entered> Act aaron naratriptan Active montelukast <not entered> Acti ve Tolectin <not entered> Active Singulair Active Keflex Active Lamictal Active Skelaxin Active Imitrex Active Augmentin Active Lipitor Active Bactrim Active Mycelex [place] Activ e Tolectin 600 Active Trileptal Active Adhesive Bandage Act aaron Latex Active Welchol Active Zetia Active ezetimibe <not entered> Active Crestor Active rosuvastatin <not entered> Act aaron lamoTRIgine <not entered> Acti ve fentaNYL 1 anaphylaxis reaction Active SUMAtriptan <not entered> Acti ve Praluent Pen <not entered> Act aaron 1applies to Fentanyl Duragesic Patch Immunizations Given and Recorded Vaccine Date Status Refusal Reason SARS-CoV-2 mRNA ([id number]) vax 05/13/24 Recorded Influenza Virus Vaccine (oldterm) 05/13/24 Recorde d Influenza Virus Vaccine (oldterm) 1 05/08/20 Recor ded SARS-CoV-2(COVID-19)mRNA-LNP vac([id number]) 05/08/23 Recorded influenza virus vaccine, inactivated 05/08/23 Homero rded influenza virus vaccine, inactivated 05/10/22 Homero rded influenza virus vaccine, inactivated 05/12/21 Homero rded influenza virus vaccine, inactivated 05/11/20 Homero rded influenza virus vaccine, inactivated 05/18/19 Homero rded influenza virus vaccine, inactivated 05/14/18 Homero rded influenza virus vaccine, inactivated 04/25/17 Homero rded influenza virus vaccine, inactivated 05/08/16 Homero rded influenza virus vaccine, inactivated 04/08/13 Homero rded influenza virus vaccine, inactivated 05/17/12 Homero rded influenza virus vaccine, inactivated 04/28/11 Homero rded influenza virus vaccine, inactivated 04/22/10 Homero rded influenza virus vaccine, inactivated 05/19/09 Homero rded influenza virus vaccine, inactivated 04/29/08 Homero rded influenza virus vaccine, inactivated 06/07/07 Homero rded [id number] bivalent booster vax 05/16/22 Recorded SARS-CoV-2 (COVID-19) mRNA-1273 vaccine 05/31/21 R ecorded SARS-CoV-2 (COVID-19) mRNA-1273 vaccine 10/30/20 R ecorded SARS-CoV-2 (COVID-19) mRNA-1273 vaccine 10/02/20 R ecorded diphtheria/tetanus/pertussis, acel(DTaP) 2 05/24/20 Recorded diphtheria/tetanus/pertussis, acel(DTaP) 12/22/11 Recorded zoster vaccine, inactivated 02/13/19 Recorded zoster vaccine, inactivated 10/12/18 Recorded pneumococcal 23-valent vaccine 08/30/18 Recorded pneumococcal 23-valent vaccine 06/26/06 Recorded pneumococcal 23-valent vaccine 02/14/06 Recorded pneumococcal 13-valent vaccine 07/26/18 Recorded pneumococcal 13-valent vaccine 05/26/16 Recorded tetanus/diphtheria/pertussis, acel(Tdap) 05/26/16 Recorded tetanus/diphtheria/pertussis, acel(Tdap) 07/28/11 Recorded Varicella Virus Vaccine 04/25/12 Recorded Zoster Vaccine Live 04/07/12 Recorded influ virus vac, H1N1, inactive(oldterm) 06/29/09 Recorded tetanus-diphtheria toxoids (Td) 07/24/06 Recorded 1Result Comment: [place] [facility] [place] Comment[place] [facility] [place]ations acetaminophen 325 mg oral capsule 2 capsule = 650 mg, By Mouth, Every 4 hours, PRN as needed for pain, # 90 capsule, 0 Refills, Maintenance, 05/11/21 10:59:00 AM EDT, Capsule, Partial fill upon patient request if the prescription is for a schedule II opioid drug. Start Date: 05/11/21 Status: Ordered Quantity: 90.0 Unit: capsule Repeat number: 1 Axert = 12.5 mg, ORAL, TABLET, 0 Refill(s),, 0 Refills, 12/27/18 3:32:00 PM EDT Start Date: 12/27/18 Status: Ordered Repeat number: 1 busPIRone 7.5 mg oral tablet 2 tablet = 15 mg, By Mouth, 3 times a day, for 90 days, # 540 tablet, 1 Refills, Hard Stop 04/29/25 11:15:00 AM EDT, 10/31/24 11:15:00 AM EDT, Tablet, [facility]/pharmacy #[id number], 166, cm, 04/15/24 15:27:00 EDT, Height, 105.6, kg, 03/05/24 9:43:00 EDT, Dry Weight Start Date: 10/31/24 Stop Date: 04/29/25 Status: Ordered Quantity: 540.0 Unit: tablet Repeat number: 2 busPIRone 7.5 mg oral tablet 2 tablet = 15 mg, By Mouth, 3 times a day, for 90 days, # 540 tablet, 1 Refills, Hard Stop 10/31/24 11:15:00 AM EDT, 05/04/24 11:15:00 AM EDT, Tablet, [facility]/pharmacy #[id number], 166, cm, 11/14/23 10:15:00 EDT, Height Start Date: 05/04/24 Stop Date: 10/31/24 Status: Ordered Quantity: 540.0 Unit: tablet Repeat number: 2 clonazePAM 0.5 mg oral tablet 1 tablet = 0.5 mg, By Mouth, 3 times a day, # 90 tablet, 5 Refills, Maintenance, 06/17/24 10:16:00 AM EST, Tablet, [facility]/pharmacy #[id number], Partial fill upon patient request if the prescription is for a schedule II opioid drug., 166, cm, 04/15/24 15:27:00 EDT, Height, 105.6, kg, 03/05/24 9:43:00 EDT, Dry Weight Start Date: 06/17/24 Stop Date: 12/14/24 Status: Ordered Quantity: 90.0 Unit: tablet Repeat number: 6 denosumab 60 mg/mL subcutaneous solution 1 mL = 60 mg, Subcutaneous Injection, Every 6 months, # 1 mL, 1 Refills, Maintenance, 10/13/23 10:11:00 AM EST, Injection, [facility], Partial fill upon patient request if the prescription is for a schedule II opioid drug., 166, cm, 10/13/23 9:35:00 EST, Height Start Date: 10/13/23 Status: Ordered Quantity: 1.0 Unit: mL Repeat number: 2 Indication: Other specified disorders of bone density and structure, unspecified site EpiPen 2-Justin 0.3 mg injectable kit = 0.3 mg, Intramuscular, Once, # 2 each, 1 Refills, Soft Stop, 10/28/21 8:40:00 PM EDT, [facility]/pharmacy#[id number], Partial fill upon patient request if the prescription is for a schedule II opioid drug., 166, cm, 10/12/21 13:22:00 EST, Height, 98, kg, 04/01/21 1:36:00 EDT, Dry Weight Start Date: 10/28/21 Status: Ordered Quantity: 2.0 Unit: each Repeat number: 2 estradiol 0.1 mg/g vaginal cream See Instructions, INSERT 1 GM VAGINALLY DAILY AT BEDTIME, # 42.5 Gm, 7 Refills, Maintenance, 05/29/24 11:50:00 AM EDT, [facility]/pharmacy #[id number], 166, cm, 04/15/24 15:27:00 EDT, Height, 105.6, kg, 03/05/24 9:43:00 EDT, Dry Weight Start Date: 05/29/24 Status: Ordered Quantity: 42.5 Unit: g Repeat number: 8 HydrOXYzine 0 Refills, Maintenance, 11/14/23 10:14:00 AM EDT, Partial fill upon patient request if the prescription is for a schedule II opioid drug. Start Date: 11/14/23 Status: Ordered Repeat number: 1 melatonin 3 mg oral tablet = 3 mg, By Mouth, Daily at bedtime, 0 Refills, Maintenance, 10/24/18 2:29:11 PM EDT Start Date: 10/24/18 Status: Ordered Repeat number: 1 metoprolol succinate 50 mg oral capsule, extended release 1 capsule = 50 mg, By Mouth, Daily, # 30 capsule, 0 Refills, Maintenance, 12/06/18 10:51:29 AM EDT, ER Capsule Start Date: 12/06/18 Status: Ordered Quantity: 30.0 Unit: capsule Repeat number: 1 mupirocin 2% topical ointment See Instructions, APPLY TOPICALLY TO THE AFFECTED AREAS THREE TIMES DAILY, # 22 Gm, 1 Refills, Maintenance, 10/13/23 10:12:00 AM EST, [facility]/pharmacy #[id number], 7, APPLY TOPICALLY TO THE AFFECTED AREAS THREE TIMES DAILY, 166, cm, 10/13/23 9:35:00 EST, Height Start Date: 10/13/23 Status: Ordered Quantity: 22.0 Unit: g Repeat number: 2 Nasacort Allergy 24HR 55 mcg/inh nasal spray 2 sprays, Daily, 0 Refills, Maintenance, 12/06/18 10:45:27 AM EDT Start Date: 12/06/18 Status: Ordered Repeat number: 1 omeprazole 40 mg oral enteric coated capsule 1-2 CAPSULE, By Mouth, Daily, # 180 capsule, 2 Refills, Maintenance, 04/15/24 4:00:00 PM EDT, [facility]/pharmacy #[id number], 166, cm, 04/15/24 15:27:00 EDT, Height, 105.6, kg, 03/05/24 9:43:00 EDT, Dry Weight Start Date: 04/15/24 Status: Ordered Quantity: 180.0 Unit: capsule Repeat number: 3 Repatha 140 mg/mL subcutaneous solution Subcutaneous Infusion, Every 14 days, 0 Refills, Maintenance, 07/10/18 11:46:43 AM EST Start Date: 07/10/18 Status: Ordered Repeat number: 1 sertraline 100 mg oral tablet 1.5 tablet = 150 mg, By Mouth, Daily, for 90 days, # 135 tablet, 1 Refills, Hard Stop 01/29/25 11:15:00 AM EDT, 08/02/24 11:15:00 AM EST, Tablet, [facility]/pharmacy #[id number], 166, cm, 04/15/24 15:27:00 EDT, Height, 105.6, kg, 03/05/24 9:43:00 EDT, Dry Weight Start Date: 08/02/24 Stop Date: 01/29/25 Status: Ordered Quantity: 135.0 Unit: tablet Repeat number: 2 sertraline 100 mg oral tablet 1.5 tablet = 150 mg, By Mouth, Daily, # 135 tablet, 1 Refills, Maintenance, 08/02/24 11:15:00 AM EST, Tablet, [facility]/pharmacy #[id number], 166, cm, 11/14/23 10:15:00 EDT, Height Start Date: 08/02/24 Stop Date: 01/29/25 Status: Ordered Quantity: 135.0 Unit: tablet Repeat number: 2 sertraline 25 mg oral tablet 1 tablet = 25 mg, By Mouth, Daily, TDD 175 mg patient trying to decrease to 150 mg but may need to increase again, # 90 tablet, 0 Refills, Maintenance, 04/17/24 10:52:00 AM EDT, Tablet, [facility]/pharmacy #[id number], Partial fill upon patient request if the prescription is for a schedule II opioid drug., 166, cm, 04/15/24 15:27:00 EDT, Height, 105.6, kg, 03/05/24 9:43:00 EDT, Dry Weight Start Date: 04/17/24 Stop Date: 07/16/24 Status: Ordered Quantity: 90.0 Unit: tablet Repeat number: 1 Sutab oral tablet See Instructions, dose 1 after 5pm evening before procedure, dose 2 is 6 hours prior to procedure time., # 1 kit, 0 Refills, Maintenance, 04/10/24 11:24:00 AM EDT, [facility]/pharmacy #[id number], Partial fill uponpatient request if the prescription is for a schedule II opioid drug., dose 1 after 5pm evening before procedure, dose 2 is 6 hours prior to procedure time., 166, cm, 03/14/24 11:56:00 EDT, Height, 105.6, kg, 03/05/24 9:43:00 EDT, Dry Weight Start Date: 04/10/24 Status: Ordered Quantity: 1.0 Unit: kit Repeat number: 1 tiZANidine 4 mg oral tablet See Instructions, TAKE 1 AND 1/2 TABLETS TWICE DAILY AND 1 TABLET IN THE AFTERNOON, # 300 tablet, Refills 2, Tot. Refills 2, Maintenance, 04/15/24 4:01:00 PM EDT, Instructions Replace Required Details,Route to Pharmacy Electronically, [facility]/pharmacy #[id number], 166, cm, 04/15/24 15:27:00 EDT, Height, 105.6, kg, 03/05/24 9:43:00 EDT, Dry Weight Start Date: 04/15/24 Status: Ordered Quantity: 300.0 Unit: tablet Repeat number: 3 topiramate 100 mg oral tablet 0.5, By Mouth, 2 times a day, Maintenance, 02/23/22 9:25:00 AM EDT, Tablet Start Date: 02/23/22 Status: Ordered Repeat number: 1 valsartan 80 mg oral tablet 80 mg, 1, tablet, By Mouth, 2 times a day, Refills 0, Maintenance, 11/14/23 10:15:00 AM EDT, Partial fill upon patient request if the prescription is for a schedule II opioid drug. Start Date: 11/14/23 Status: Ordered Repeat number: 1 Problem List Condition Confirmation Course Effective Dates Status H ealth Status Informant Ascending aortic aneurysm Confirmed Active Anxiety Confirmed Active Aortic valve regurgitation Confirmed Active Facet arthropathy, cervical Confirmed Active Asthma Confirmed Active Biliary sludge Confirmed Active Bilateral breast lump Confirmed Active Chronic back pain Confirmed Active Female cystocele Confirmed Active Gastroesophageal reflux disease Confirmed Active H/O vertebroplasty Confirmed Active S/P vaginal hysterectomy Confirmed Active H/O compression fracture of spine 1 Confirmed Active Hyperlipidemia Confirmed Active HLD (hyperlipidemia) Confirmed Active Prolinemia Confirmed Active Hypertensive disorder Confirmed Active Major depressive disorder Confirmed Active Marfan's syndrome Confirmed Active Mechanical low back pain Confirmed Active Migraines Confirmed Active Mild recurrent major depression Confirmed Active Osteopenia Confirmed Active Women's annual routine gynecological examination Confirmed Active Polyp of colon Confirmed Active Colon polyp Confirmed Active Posttraumatic stress disorder Confirmed Active Recurrent sinusitis Confirmed Active Severe obesity (BMI 35.0-39.9) with comorbidity Confirmed Active Thyroid nodule Confirmed Active 1T11 Social History Social History Type Response Smoking Status Former smoker; Stopp ed at age: 26; entered on: 04/15/15 Sex Sex Representation Female (finding) Patient Care team information Care Team Personnel Name: Harinder Quan RN Position: [facility] RN Member Role: Primary Care Nurse Name: Opal Chung [place] Position: [facility] Office Staff Member Role: Primary Care Nurse Name: Thomas Garcia MD Position: [facility] Physician - Hospital Medicine Member Role: PCP Address: [address] [place] [id number] Telecom: Name: Charis Lou [place] Position: [facility] Office Staff Member Role: Primary Care Nurse Name: Cyndi Gonzalez RN Position: [facility] RN Member Role: Primary Care Nurse Name: Nikki Bailey Position: [facility] Outreach Member Role: [employer] Consulting Physician Care Team Related Persons Name: NATALY AVILES Name: OLINDA HAWKINS Insurance Providers Guarantor name: HANNAH HAWKINS Health Plan Information #: 1 Payer: MEDICARE PART B OUTPT Member Number: NA Policy Number: NA Group Number: NA Health Plan Information #: 2 Payer: SHIKHA RAYMUNDO Member Number: NA Policy Number: NA Group Number: NA
--- OUTSIDE RECORDS SUMMARY | 2024-07-16 12:43 | XMS_ITS | Continuity of Care Document ---
Author Organization [place] - [facility] Address [address] [address] Assessment Encounter Date Assessment Date Assessment LastModified by Organization Details LastModified Time 04/18/2024 04/18/2024 Patient is ready to proceed with new amplification. Discussed various, types, models. Patient is interested in mid level in rechargeable option. Impressions made. 2457 deposit/2457 due [email or web address] Not available 04/18/2024 16:08:27 Plan of Treatment Reminders Order Date Submit Date Provider Last Modified By Organization Details Last Modified Time Details Appointments LAWRENCE Fitting Follow Up (30) 2024 02:30P RIKA MONTOYA Not available Not available Not available Lab None recorded . Referral None recorded . Procedures None recorded . Surgeries None recorded . Imaging None recorded . Medication Orders None recorded . Patient TargetsNo targets recorded. Patient InstructionsNo instructions recorded. Reason for Referral None Reported. Results Created Date Observation Date Name Description Value Unit Range Abnormal Flag Note LastModifiedBy Organization Detail LastModifiedTime 03/27/2004/13/2021 imagi ng/di audreyos tic resul t No observ ation record ed. [email or web address] Not Available 05:15:58 03/27/20 24 09/06/2018 audio gram No observ ation record ed. [email or web address] Not Available 05:16:05 03/27/20 24 09/27/2018 audio gram No observ ation record ed. [email or web address] Not Available 05:16:06 03/27/20 24 10/26/2023 audio gram No observ ation record ed. [email or web address] Not Available 05:16:15 03/27/20 24 11/22/2018 audio gram No observ ation record ed. [email or web address] Not Available 05:16:22 03/27/20 24 12/15/2022 audio gram No observ ation record ed. [email or web address] Not Available 05:16:23 03/27/20 24 12/17/2020 audio gram No observ ation record ed. [email or web address] Not Available 05:16:27 03/27/20 24 01/11/2021 audio gram No observ ation record ed. [email or web address] Not Available 05:16:34 03/27/20 24 01/13/2022 audio gram No observ ation record ed. [email or web address] Not Available 05:16:39 03/27/20 24 01/17/2019 audio gram No observ ation record ed. [email or web address] Not Available 05:16:44 03/27/20 24 01/20/2020 audio gram No observ ation record ed. [email or web address] Not Available 05:16:52 03/27/20 24 06/17/2021 audio gram No observ ation record ed. [email or web address] Not Available 05:17:04 03/27/20 24 07/09/2020 audio gram No observ ation record ed. [email or web address] Not Available 05:17:24 03/27/20 24 07/18/2019 audio gram No observ ation record ed. [email or web address] Not Available 05:17:31 03/27/20 24 07/21/2022 audio gram No observ ation record ed. [email or web address] Not Available 05:17:37 04/19/20 audio gram No observ ation record ed. [email or web address] Not Available 04/07 15:02:33 Result Notes None recorded. Problems Name Problem SNOMED Code Status Onset Date Resolution Date Notes Provider Name and Address Organization Details Recorded Time Xerostomi a 57946645 Active 2014 Dry mouth, unspecifi ed; Note: Date Diagnosed : 5 2:03 PM (R68.2) Not Available [facility] 4 03:01:39 Dysphonia 21402625 Active 2014 Hoarsenes s; Note: Date Diagnosed : 5 2:03 PM (R49.0) Not Available [facility] 4 03:01:40 Abnormal auditory perceptio n 98282137 Active 2017 Other abnormal auditory perceptio ns, bilateral ; Note: Date Diagnosed : 03/22/2018 9:54 AM (H93.293) Not Available [facility] 4 03:01:39 Gastroeso phageal reflux disease without esophagit is 487232825 Active 2014 Gastro-es ophageal reflux disease without esophagit is; Note: Date Diagnosed : 5 2:04 PM (K21.9) Not Available [facility] 4 03:01:38 Posterior rhinorrhe a 97406769 Active 2017 Postnasal drip; Note: Date Diagnosed : 04/20/2018 8:14 AM (R09.82) Not Available [facility] 4 03:01:41 Disturban ce of salivary secretion 49244193 Active 2017 Xerostomi a; Note: Date Diagnosed : 04/20/2018 8:18 AM (K11.7) Not Available [facility] 4 03:01:41 Sensorine ural hearing loss of bilateral ears 530783482 Active 2017 Sensorine ural hearing loss, bilateral ; Note: Date Diagnosed : 03/22/2018 10:01 AM (H90.3) Not Available [facility] 4 03:01:40 Headache 35649210 Active 2017 Headache, unspecifi ed; Note: Changed from R51 to R51.9 (04/15/2021 10:47 AM) , Date Diagnosed : 03/22/2018 9:55 AM (R51) Not Available [facility] 4 03:01:38 Nasal congestio n 54259664 Active 2017 Nasal congestio n; Note: Date Diagnosed : 03/22/2018 9:55 AM (R09.81) Not Available [facility] 4 03:01:40 Closed fracture of nasal bones 36151302 Active 2020 Fracture of nasal bones, initial encounter for closed fracture; Note: Date Diagnosed : 04/07/2021 4:11 PM (S02.2XXA ) Not Available [facility] 4 03:01:39 Bilateral tinnitus 38524536184 02 Active 2017 Tinnitus, bilateral ; Note: Date Diagnosed : 03/22/2018 9:54 AM (H93.13) Not Available [facility] 4 03:01:39 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 Procedures Surgical History Date Name Laterality Status Provider Name and Address Organization Details Recorded Time 04/18/2024 Comp Audio (10883) completed SKYE THIBODEAUX, [facility] [address] [facility],[place] [address], [place], [address], [facility] - [facility] 04/18/2024 16:01:16 Imaging Results None recorded. Procedure Notes None recorded. Medical Equipment None Reported. Medications Name Sig Start Date Stop Date Status Note LastModified by Organization Details LastModified Time cyclobenza joel 10 mg tablet 2014 active Medicatio n ID: [id number] Du ration Value: 28 Brand Name: cyclobenz aprine Se nd Method: E-Prescri bed Subs Allowed: subs OK Specia l Instructi on: TAKE 1 TABLET 3 TIMES A DAY NEEDED FOR MUSCLE SPASMS Me dicationG enericNam e: cyclobenz aprine Not Available Not Available Not Available tizanidine 4 mg tablet TAKE 1 AND 1/2 TABLETS TWICE DAILY AND 1 TABLET IN THE AFTERNOON active Not Available Not Available No t Available metoprolol succinate ER 50 mg tablet,ext ended release 24 hr TAKE 1 TABLET BY MOUTH EVERY DAY active Not Available Not Available No t Available almotripta n malate 12.5 mg tablet TAKE 1 TABLET BY MOUTH EVERY 4 HOURS NEEDED UP TO 2 A DAY active Not Available Not Available No t Available clonazepam 0.5 mg tablet TAKE 1 TABLET BY MOUTH 3 TIMES A DAY active Not Available Not Available No t Available sertraline 100 mg tablet TAKE 1.5 TABLET BY MOUTH DAILY,X90 DAYS active Not Available Not Available No t Available clonazepam 1 mg tablet TAKE 1/2 TABLET BY MOUTH DAILY AT BEDTIME . MAY TAKE 1/2 EXTRA NEEDED ANXIETY X30 DAYS active Not Available Not Available No t Available valsartan 80 mg tablet TAKE 1 TAB BY MOUTH 2 TIMES A DAY active Not Available Not Available No t Available prochlorpe razine maleate 10 mg tablet 2014 active Medicatio n ID: [id number] Du ration Value: 10 Brand Name: prochlorp erazine maleate S end Method: E-Prescri bed Subs Allowed: subs OK Specia l Instructi on: TAKE 1 TABLET 3 TIMES A DAY NEEDED Me dicationG enericNam e: prochlorp erazine maleate Not Available Not Available Not Available omeprazole 40 mg capsule,de layed release TAKE 1-2 CAPSULE BY MOUTH DAILY active Not Available Not Available No t Available doxycyclin e monohydrat e 100 mg tablet TAKE 1 TABLET BY MOUTH TWICE A DAY FOR 7 DAYS active Not Available Not Available No t Available desonide 0.05 % topical ointment 2014 active Medicatio n ID: [id number] Du ration Value: 20 Brand Name: desonide Send Method: E-Prescri bed Subs Allowed: subs OK Specia l Instructi on: APPLY TO AFFECTED AREAS DIRECTED TWICE DAILY. Me dicationG enericNam e: desonide Not Available Not Available Not Available benzonatat e 100 mg capsule TAKE 2 CAPSULES BY MOUTH 3 TIMES A DAY NEEDED FOR COUGH active Not Available Not Available No t Available sertraline 25 mg tablet PLEASE SEE ATTACHED FOR DETAILED DIRECTION S active Not Available Not Available No t Available buspirone 7.5 mg tablet TAKE 2 TABLETS BY MOUTH 3 TIMES A DAY active Not Available Not Available No t Available mupirocin 2 % topical ointment APPLY TOPICALLY TO THE AFFECTED AREAS THREE TIMES DAILY active Not Available Not Available No t Available epinephrin e 0.3 mg/0.3 mL injection, auto-injec tor active Medicatio n ID: [id number] Du ration Value: 2 Brand Name: brittani ne Send Method: E-Prescri bed Subs Allowed: subs OK Medica tionGener icName: brandonri ne Not Available Not Available Not Available estradiol 0.01% (0.1 mg/gram) vaginal cream INSERT 1 GM VAGINALLY DAILY AT BEDTIME active Not Available Not Available No t Available hydroxyzin e HCl 10 mg tablet TAKE 1 TABLET BY MOUTH 2 TIMES A DAY NEEDED FOR ANXIETY active Not Available Not Available No t Available topiramate 100 mg tablet 2014 active Medicatio n ID: [id number] Du ration Value: 30 Brand Name: topiramat e Send Method: E-Prescri bed Subs Allowed: subs OK Medica tionGener icName: topiramat e Not Available Not Available Not Available buspirone 15 mg tablet active Medicatio n ID: [id number] Du ration Value: 30 Brand Name: buspirone Send Method: E-Prescri bed Subs Allowed: subs OK Medica tionGener icName: buspirone Not Available Not Available Not Available Actonel 35 mg tablet 2014 active Medicatio n ID: [id number] Du ration Value: 84 Brand Name: Actonel S end Method: E-Prescri bed Subs Allowed: subs OK Medica tionGener icName: Actonel Not Available Not Available Not Available valsartan 40 mg tablet TAKE 1 TABLET BY MOUTH EVERY DAY active Not Available Not Available No t Available Crestor 5 mg tablet 2014 active Medicatio n ID: [id number] Du ration Value: 30 Brand Name: Crestor S end Method: E-Prescri bed Subs Allowed: subs OK Specia l Instructi on: TAKE 1 TAB BY MOUTH DAILY. Ma dicationG enericNam e: Crestor Not Available Not Available Not Available topiramate 50 mg tablet TAKE 1 TABLET BY MOUTH TWICE A DAY FOR 90 DAYS active Not Available Not Available No t Available Flovent HFA 220 mcg/actuat ion aerosol inhaler 2014 active Medicatio n ID: [id number] Du ration Value: 30 Brand Name: Flovent HFA Send Method: E-Prescri bed Subs Allowed: subs OK Specia l Instructi on: INHALE 2 PUFFS TWICE DAILY Med icationGe nericName : Flovent HFA Not Available Not Available Not Available ProAir HFA 90 mcg/actuat ion aerosol inhaler 2014 active Medicatio n ID: [id number] Du ration Value: 30 Brand Name: ProAir HFA Send Method: E-Prescri bed Subs Allowed: subs OK Specia l Instructi on: INHALE 2 PUFFS EVERY 6 HOURS NEEDED FOR WHEEZING/ SHORTNESS OF BREAT H Medicat ionGeneri cName: ProAir HFA Not Available Not Available Not Available oxycodone 10 mg tablet 2014 active Medicatio n ID: [id number] Du ration Value: 28 Brand Name: oxycodone Send Method: E-Prescri bed Subs Allowed: subs OK Specia l Instructi on: TAKE 1 TABLET 4 TIMES A DAY NEEDED FOR PAIN Medi cationGen ericName: oxycodone Not Available Not Available Not Available Vagifem 10 mcg vaginal tablet 2014 active Medicatio n ID: [id number] Du ration Value: 83 Brand Name: Vagifem S end Method: E-Prescri bed Subs Allowed: subs OK Specia l Instructi on: INSERT 1 TABLET VAGINALLY ONCE A WEEK. Med icationGe nericName : Vagifem Not Available Not Available Not Available Prolia 60 mg/mL subcutaneo us syringe active Not Available Not Available N ot Available Repatha SureClick 140 mg/mL subcutaneo us pen injector 140 MG SUBCUTANE OUSLY EVERY 2 WEEKS FOR 90 DAYS active Not Available Not Available No t Available Xiidra 5 % eye drops in a dropperett e active Medicatio n ID: [id number] Du ration Value: 30 Brand Name: Xiidra Se nd Method: E-Prescri bed Subs Allowed: subs OK Medica tionGener icName: Xiidra Not Available Not Available Not Available Sutab 1.479-0.18 8-0.225 gram tablet DOSE 1 AFTER 5PM EVENING BEFORE PROCEDURE , DOSE 2 IS 6 HOURS PRIOR TO PROCEDURE TIME. active Not Available Not Available No t Available Vitals None Recorded Social History None recorded. Functional Status None recorded. Mental Status None recorded. Family History Nothing Reported. Medical History No medical history recorded. Gynecological HistoryNo gynecological history recorded. Obstetrics History GPAL:G 0 P 0 0 0 0 Past Encounters Encounter ID Performer Location Encounter Start Date Encounter Closed Date Diagnosis/Indication Diagnosis SNOMED-CT Code Diagnosis ICD10 Code [id number] SKYE THIBODEAUX, RIKA [place] [facility] [place] [address],[place] [address] [place] [address] 04/18/2024 13:36:28 04/22/2024 12:10:49 Sensorineural hearing loss of bilateral ears [id number] H90.3 Health Concerns Section Related Observation LastModified by Organization Detai ls LastModified Time None Recorded Concern Status LastModified by Organization Details LastModified Time None Recorded Payers Encounter Date Sequence Insurance Name Policy Number Policy Babin Covered Member ID Babin Member ID Guarantor Name 04/18/2024 2 [facility] (MEDICARE SUPPLEMENT) Kerry Ortega [id number] Kerry Ortega 04/18/2024 1 MEDICARE B-SC: [facility] [employer] Kerry Ortega [id number] Kerry Ortega Notes Date Note Type Note Provider Name and Address Organization Details Recorded Time 04/18/2024 text/html Known Bilateral SNHL. 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 Was not ready financially yet - may want to upgrade ? HT next time SKYE THIBODEAUX, RIKA [address] [facility] [address], [place], [address], [facility] - [facility] 04/18/2024 16:08:54 OBGyn Episode No OBEpisode recorded.
--- OUTSIDE RECORDS SUMMARY | 2024-07-16 12:43 | XMS_ITS | Data Portability ---
Author Organization [place] - [facility], Allergy Address [address] [place] [id number] Assessment Encounter Date Assessment Date Assessment LastModified by Organization Details LastModified Time 04/18/2024 04/18/2024 Patient is ready to proceed with new amplification. Discussed various, types, models. Patient is interested in mid level in rechargeable option. Impressions made. 2457 deposit/2457 due [email or web address] Not available 04/18/2024 16:08:27 05/23/2024 05/23/2024 Expereinced hearing aid user. Excellent fit to real ear. Reviewed daily care and maintenance. FFU 2 weeks [email or web address] Not available 05/23/2024 16:47:06 06/06/2024 06/06/2024 doing well. reviewed daily care and maintenance. registered TVplay.. 6mo [facility] CK appt made Not available 06/06/2024 13:30:19 Plan of Treatment Reminders Order Date Submit [...] Abnormal Flag Note LastModifiedBy Organization Detail LastModifiedTime 03/27/20 24 04/13/2021 imagi ng/di agnos tic resul t No observ ation record [...] ation record ed. [email or web address] Not Available 05:17:31 03/27/2007/21/2022 audio gram No observ ation record ed. [email or web address] Not Available 05:17:37 04/19/20 audio gram No observ ation record ed. [email or web address] Not Available 04/07 15:02:33 Result Notes None recorded. Problems Name Problem SNOMED Code Status Onset Date Resolution Date Notes Provider Name and Address Organization Details Recorded Time Xerostomi a 69219268 Active 2014 Dry mouth, unspecifi ed; Note: Date Diagnosed : 5 2:03 PM (R68.2) Not Available [facility] 4 03:01:39 Dysphonia 60271207 Active 2014 Hoarsenes s; Note: Date Diagnosed : 5 2:03 PM (R49.0) Not Available [facility] 4 03:01:40 Abnormal auditory perceptio n 17509883 Active 2017 Other abnormal auditory perceptio ns, bilateral ; Note: Date Diagnosed : 03/22/2018 9:54 AM (H93.293) Not Available [facility] 4 03:01:39 Gastroeso phageal reflux disease without esophagit is 006089179 Active 2014 Gastro-es ophageal reflux disease without esophagit is; Note: Date Diagnosed : 5 2:04 PM (K21.9) Not Available [facility] 4 03:01:38 Posterior rhinorrhe a 04604897 Active 2017 Postnasal drip; Note: Date Diagnosed : 04/20/2018 8:14 AM (R09.82) Not Available [facility] 4 03:01:41 Disturban ce of salivary secretion 59824165 Active 2017 Xerostomi a; Note: Date Diagnosed : 04/20/2018 8:18 AM (K11.7) Not Available [facility] 4 03:01:41 Sensorine ural hearing loss of bilateral ears 167755701 Active 2017 Sensorine ural hearing loss, bilateral ; Note: Date Diagnosed : 03/22/2018 10:01 AM (H90.3) Not Available [facility] 4 03:01:40 Headache 45382815 Active 2017 Headache, unspecifi ed; Note: Changed from R51 to R51.9 (04/15/2021 10:47 AM) , Date Diagnosed : 03/22/2018 9:55 AM (R51) Not Available [facility] 4 03:01:38 Nasal congestio n 39611720 Active 2017 Nasal congestio n; Note: Date Diagnosed : 03/22/2018 9:55 AM (R09.81) Not Available [facility] 4 03:01:40 Closed fracture of nasal bones 06872458 Active 2020 Fracture of nasal bones, initial encounter for closed fracture; Note: Date Diagnosed : 04/07/2021 4:11 PM (S02.2XXA ) Not Available [facility] 4 03:01:39 Bilateral tinnitus 76964578888 02 Active 2017 Tinnitus, bilateral ; Note: Date Diagnosed : 03/22/2018 9:54 AM (H93.13) Not Available [facility] 4 03:01:39 Hypogamma globuline savanna 992712898 Active 2014 Hypogamma globuline savanna NOS; Note: Date Diagnosed : 5 2:04 PM (D80.1) Not Available [facility] 4 03:01:39 Problem Notes None recorded. Procedures Surgical History Date Name Laterality Status Provider Name and Address Organization Details Recorded Time 04/18/2024 Comp Audio (64645) completed SKYE TH[facility], [facility] [address], [phone], [facility] - [facility] 04/18/2024 16:01:16 Imaging Results Imaging Date Name Status LastModified by Organiz [facility] Details LastModified Time 04/13/2021 imaging/diagno stic result completed Information not available 03/27/2024 05:15:58 09/06/2018 audiogram completed Information not available 03/27/2024 05:16:05 09/27/2018 audiogram completed Information not available 03/27/2024 05:16:06 10/26/2023 audiogram completed Information not available 03/27/2024 05:16:15 11/22/2018 audiogram completed Information not available 03/27/2024 05:16:22 12/15/2022 audiogram completed Information not available 03/27/2024 05:16:23 12/17/2020 audiogram completed Information not available 03/27/2024 05:16:27 01/11/2021 audiogram completed Information not available 03/27/2024 05:16:34 01/13/2022 audiogram completed Information not available 03/27/2024 05:16:39 01/17/2019 audiogram completed Information not available 03/27/2024 05:16:44 01/20/2020 audiogram completed Information not available 03/27/2024 05:16:52 06/17/2021 audiogram completed Information not available 03/27/2024 05:17:04 07/09/2020 audiogram completed Information not available 03/27/2024 05:17:24 07/18/2019 audiogram completed Information not available 03/27/2024 05:17:31 07/21/2022 audiogram completed Information not available 03/27/2024 05:17:37 04/19/2024 audiogram completed [email or web address] Information n ot available 04/19/2024 15:02:33 Procedure Notes None recorded. Medical Equipment None Reported. Medications Name Sig Start Date Stop Date Status Note LastModified by Organization Details LastModified Time cyclobenza joel 10 mg tablet 2014 active Medicatio n ID: [id number] Du ration Value: 28 Brand Name: cyclobenz [...] mg tablet 2014 active Medicatio n ID: [id number] Du ration Value: 10 Brand Name: prochlorp [...] topical ointment 2014 active Medicatio n ID: [id number] Du ration Value: 20 Brand Name: desonide [...] injection, auto-injec tor active Medicatio n ID: [id number] Du ration Value: 2 Brand Name: brandonri ne Send Method: E-Prescri bed Subs Allowed: subs [place] Medica tionGener icName: epinephri ne Not Available Not Available Not Available estradiol 0.01% (0.1 mg/gram) vaginal cream INSERT 1 GM VAGINALLY DAILY AT BEDTIME active Not Available Not Available No t Available hydroxyzin e HCl 10 mg tablet TAKE 1 TABLET BY MOUTH 2 TIMES A DAY NEEDED FOR ANXIETY active Not Available Not Available No t Available topiramate 100 mg tablet 2014 active Medicatio n ID: [id number] Du ration Value: 30 Brand Name: topiramat e Send Method: E-Prescri bed Subs Allowed: subs [place] Medica tionGedixie icName: topiramat e Not Available Not Available Not Available buspirone 15 mg tablet active Medicatio n ID: [id number] Du ration Value: 30 Brand Name: buspirone Send Method: E-Prescri bed Subs Allowed: subs [place] Medica tionGener icName: buspirone Not Available Not Available Not Available Actonel 35 mg tablet 2014 active Medicatio n ID: [id number] Du ration Value: 84 Brand Name: Actonel S end Method: E-Prescri bed Subs Allowed: subs [place] Medica tionGener icName: Actonel Not Available Not Available Not Available valsartan 40 mg tablet TAKE 1 TABLET BY MOUTH EVERY DAY active Not Available Not Available No t Available Crestor 5 mg tablet 2014 active Medicatio n ID: [id number] Du ration Value: 30 Brand Name: Crestor S end Method: E-Prescri bed Subs Allowed: subs [place] Specia l Instructi on: TAKE 1 TAB BY MOUTH DAILY. Ks dicationG enericNam e: Crestor Not Available Not Available Not Available topiramate 50 mg tablet TAKE 1 TABLET BY MOUTH TWICE A DAY FOR 90 DAYS active Not Available Not Available No t Available Flovent HFA 220 mcg/actuat ion aerosol inhaler 2014 active Medicatio n ID: [id number] Du ration Value: 30 Brand Name: Flovent HFA Send Method: E-Prescri bed Subs Allowed: subs [place] Specia l Instructi on: INHALE 2 PUFFS TWICE DAILY Med icationGe nericName : Flovent HFA Not Available Not Available Not Available ProAir HFA 90 mcg/actuat ion aerosol inhaler 2014 active Medicatio n ID: [id number] Du ration Value: 30 Brand Name: ProAir HFA Send Method: E-Prescri bed Subs Allowed: subs [place] Specia l Instructi on: INHALE 2 PUFFS EVERY 6 HOURS NEEDED FOR WHEEZING/ SHORTNESS OF BREAT H Medicat ionGeneri cName: ProAir HFA Not Available Not Available Not Available oxycodone 10 mg tablet 2014 active Medicatio n ID: [id number] Du ration Value: 28 Brand Name: oxycodone Send Method: E-Prescri bed Subs Allowed: subs [place] Specia l Instructi on: TAKE 1 TABLET 4 TIMES A DAY NEEDED FOR PAIN Medi cationGen ericName: oxycodone Not Available Not Available Not Available Vagifem 10 mcg vaginal tablet 2014 active Medicatio n ID: [id number] Du ration Value: 83 Brand Name: Vagifem [...] a dropperett e active Medicatio n ID: [id number] Du ration Value: 30 Brand Name: Xiidra [...] Diagnosis/Indication Diagnosis SNOMED-CT Code Diagnosis ICD10 Code 26216 SKYE [place] AUD [place] [facility] [place] [address] [facility] [address] [place] [address] 04/18/2024 13:36:28 04/22/2024 12:10:49 Sensorineural hearing loss of bilateral ears 288034085 H90.3 14560 SKYE [place] AUD [place] [facility] [place] [address] [facility] [address] [place] [address] 05/23/2024 15:50:22 05/27/2024 07:19:33 Sensorineural hearing loss of bilateral ears 285739939 H90.3 59404 SKYE [place] AUD [place] [address] [facility] [place] [address] 06/06/2024 12:48:18 06/06/2024 16:38:34 Sensorineural hearing loss of bilateral ears 623584202 H90.3 Health Concerns Section Related Observation LastModified by Organization Detai ls LastModified Time None Recorded Concern Status LastModified by Organization Details LastModified Time None Recorded Advance Directives Directive None Recorded Payers Encounter Date Sequence Insurance Name Policy Number Policy Babin Covered Member ID Babin Member ID Guarantor Name 04/18/2024 2 [facility] (MEDICARE SUPPLEMENT) Kerry Ortega [id number] Kerry Ortega 04/18/2024 1 [place] [facility] [employer] Kerry Ortega [id number] Kerry Ortega 05/23/2024 2 [facility] (MEDICARE SUPPLEMENT) Kerry Ortega [id number] Kerry Ortega 05/23/2024 1 [place] [employer] Kerry Ortega [id number] Kerry Ortega 06/06/2024 2 [facility] (MEDICARE SUPPLEMENT) Kerry Jeff Jordan [id number] Kerryjohn Ortega 06/06/2024 1 [place] [facility] SERVICES Kerry Jeff Jordan [id number] Kerry Ortega Notes Date Note Type Note Provider Name and Address Organization Details Recorded Time 04/18/2024 text/html Known Bilateral SNHL. 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 Was not ready financially yet - may want to upgrade ? HT next time SKYE THIBODEAUX, AUD [address] [facility],[place] [address], [place], [address], [facility] - [facility] 04/18/2024 16:08:54 OBGyn Episode No OBEpisode recorded.
--- OUTSIDE RECORDS SUMMARY | 2024-07-16 12:43 | XMS_ITS | Data Portability ---
Author Organization [place] - Jimi Lares Kyroslyn [facility], [facility] Address [address] [place] [address] Assessment Encounter Date Assessment Date Assessment LastModified by Organization Details LastModified Time 11/10/2023 11/10/2023 Foot and Ankle Follow-up Patient Note CC/Diagnosis: Left 5th metatarsal zone 2 stress fracture DOI: 05/26/23 HPI: Kerry presents for routine follow-up. She was last seen 08/11/23. She is now over 5 months out from her injury. Continues to do well. Ambulating unassisted in normal shoe wear. Has occasional pain in the left foot at the lateral column. Does not bother her daily. Not currently limiting her activities. Has occasional soreness in the right foot but that is also not limiting her. No other complaints today on exam. Past family history, medical history, social history, allergies, and review of systems has been reviewed, updated and are located in the patient's chart. PHYSICAL EXAM: Constitutional: Healthy appearing individual in no acute distress Psychiatric: Alert and oriented Respiratory: Unlabored breathing Lymphatic: No lymphadenopathy in the foot/ankle Skin: No open wounds CV: Palpable pedal pulses Neuro: Light touch grossly intact MSK: Focused examination of the left foot and ankle- On standing exam her alignment is appropriate. No significant deformity. On seated exam there's no swelling or ecchymosis. No other signs of trauma. Nontender over the 5th metatarsal base. 5/5 peroneal tendon strength. Motor exam- intact dorsiflexion/plant arflexion, inversion/eversion Sensory exam- reports sensation intact to light touch SP/DP/S/S/T distributions Palpable DP/PT pulses, foot warm and well perfused, appropriate capillary refill IMAGING: X-Rays ordered, obtained, and reviewed at [facility]: 3 weightbearing x-rays of the left foot reveal no 5th metatarsal base stress fracture. Fracture appears healed centrally with diminished fracture line. Fracture line is still visible on oblique and lateral view partially. Some beaking at the fracture site which can be indicative of partial healing. ASSESSMENT: Left 5th metatarsal zone 2 stress fracture, partial radiographic healing, improved clinically PLAN: We reviewed her diagnosis, treatment to date, plan moving forward. She is doing very well clinically. Returning to normal activities in normal shoe wear. She is not had any setbacks. Discussed that these 5th metatarsal base stress fractures do not always heal fully on x-ray. Plan to go by her clinical symptoms. Since she is doing well I do not have any restrictions for her. At this point time she may follow-up on an as needed basis. If she has worsening symptoms or any issues going forward I would like to see her. Will obtain x-rays as needed if she comes back in the future. Patient agrees to the plan, questions answered. Not available 11/10/2023 13:05:03 Plan of Treatment Reminders Order Date Submit Date Provider Last Modified By Organization Details Last Modified Time Details Appointments None recorde d. Lab None recorde d. Referral None recorde d. Procedures None recorde d. Surgeries None recorde d. Imaging XR, foot, 3 or more view - ROOM 104 LEFT FOOT 3 VIEWS WB 024 11/10/19 24 [email or web address] [address], [address], [place], [address], 4 16:00:30 XR, wrist, 3 or more view - rm 118 4v medical laboratory technical officer view 024 05/29/20 24 [email or web address] [facility], [address], [address], [place], [address], 4 15:49:02 Medication Orders None recorde d. Patient TargetsNo targets recorded. Patient InstructionsNo instructions recorded. Reason for Referral None Reported. Results Created Date Observation Date Name Description Value Unit Range Abnormal Flag Note LastModifiedBy Organization Detail LastModifiedTime 04/05/20 24 10/16/2019 imagi ng/kyler wright tic resul t No observ ation record ed. [email or web address] Not Available 03/09 19:34:45 04/05/20 24 11/05/2019 imagi ng/di agnos tic resul t No observ ation record ed. [email or web address] Not Available 03/09 19:34:49 05/29/20 24 05/29/2024 XR, wrist , 3 or more view [email or web address] ?Encry pted=s hAaTro YD8dLq bEUv6g %2BXZw aYqtaq 0bqfl% 2Fg9IQ a4ajBk vP9nXo QUaueC m3YtLR FvZlgJ 8[facility] [id number] AC0Kqa H2BUqu nKiQtr MwF INTERFACE [facility] [address], [place], [address], 05/29/2024 16:17:59 05/29/20 24 05/29/2024 XR, wrist , 3 or more view http:/ [email or web address] ?Encry pted=s hAaTro YD8dLq bEUv6g %2BXZw aYqtaq 0bqfl% 2Fg9IQ a4ajBk vP9nXo QUaueC m3YtLR FvZlgOR[facility]tai[facility] [id number] AC0Kqa H2BUqu nKiQtr MwF INTERFACE [facility] [address], [place], [address], 05/29/2024 16:18:01 Result Notes None recorded. Problems Name Problem SNOMED Code Status Onset Date Resolution Date Notes Provider Name and Address Organization Details Recorded Time Closed fracture of distal end of left radius 018840627803 56466 Active 2015 Problem Code: S52.592A ; Problem Code Type: ICD-10; Status: 'A'; Not Available [facility] 11:57:28 Closed fracture of fifth metatarsa l bone 69595554 Active 2023 Adam Quiros MD [address], [place], [address] , [facility] 13:23:56 Problem Notes None recorded. Procedures Surgical History Date Name Laterality Status Provider Name and Address Organization Details Recorded Time 4 JZCMC Inj cancelled Trev Goff PA-C [address], [place], [address], [facility] 05/29/2024 18:06:03 4 Small Joint Kenalog Injection, L/R cancelled Trev Goff PA-C [address], [place], [address], [facility] 05/29/2024 18:06:37 Imaging Results Imaging Date Name Status LastModified by Organiz ation Details LastModified Time 10/16/2019 imaging/diag nostic result completed Information not available 04/05/2024 19:34:45 11/05/2019 imaging/diag nostic result completed Information not available 04/05/2024 19:34:49 05/29/2024 XR, wrist, 3 or more view completed INTERFACE [facility] [address], [place], [address], 05/29/2024 16:17:59 05/29/2024 XR, wrist, 3 or more view completed INTERFACE [facility] [address], [place], [address], 05/29/2024 16:18:01 Procedure Notes None recorded. Medical Equipment None Reported. Allergies Allergen ID Allergen Name Allergen Category Reaction Reaction Severity Criticality Documentation Date Start Date Code Code System Note Provider Name and Address Organization Details Recorded Time 17304 latex environme nt,medica tion Not available Not available Not available 10/09/20232005 32849 91 RxNorm Aller gyRea ction : 'Skin React ion'; Not Available [facility] 13:27:51 74173 Lamictal medicatio n Not available Not available Not available 10/09/20232015 42501 2 RxNorm Not Available [facility] 4 13:27:51 53009 simvastat in medicatio n Not available Not available Not available 10/09/20232015 61275 RxNorm Not Available [facility] 4 13:27:51 92303 cyclobenz aprine hydrochlo ride medicatio n Not available Not available Not available 10/09/20232019 88756 RxNorm Not Available [facility] 4 13:27:51 42616 Imitrex medicatio n Not available Not available Not available 10/09/20232015 58656 3 RxNorm Not Available [facility] 4 13:27:51 88545 Lipitor medicatio n Not available Not available Not available 10/09/20232015 36837 5 RxNorm Not Available [facility] 4 13:27:51 90574 clindamyc in hydrochlo ride medicatio n Not available Not available Not available 10/09/20232019 68050 RxNorm Not Available [facility] 4 13:27:51 88047 Keflex medicatio n Not available Not available Not available 10/09/20232019 93690 7 RxNorm Not Available [facility] 4 13:27:52 03158 erythromy susana medicatio n Not available Not available Not available 10/09/20232015 4053 RxNorm Not Available [facility] 4 13:27:52 08465 Bactrim medicatio n Not available Not available Not available 10/09/20232015 99825 9 RxNorm Not Available [facility] 4 13:27:52 Medications Name Sig Start Date Stop Date Status Note LastModified by Organization Details LastModified Time clonidine HCl 0.1 mg tablet TAKE 1 TABLET BY MOUTH TWICE A DAY NEEDED active Not Available Not Available No t Available tizanidine 4 mg tablet TAKE 1 AND 1/2 TABLETS TWICE DAILY AND 1 TABLET IN THE AFTERNOON active Not Available Not Available No t Available metoprolol succinate ER 50 mg tablet,exte nded release 24 hr TAKE 1 TABLET BY MOUTH EVERY DAY active Not Available Not Available No t Available almotriptan malate 12.5 mg tablet TAKE 1 TABLET [...] Not Available Not Available No t Available amlodipine 2.5 mg tablet TAKE 1 TABLET BY MOUTH DAILY AT 10AM active Not Available Not Available No t Available omeprazole 40 mg capsule,del ayed release TAKE 1-2 CAPSULE BY MOUTH DAILY active Not Available Not Available No t Available doxycycline monohydrate 100 mg tablet TAKE 1 TABLET BY MOUTH TWICE A DAY FOR 7 DAYS active Not Available Not Available No t Available tramadol 50 mg tablet TAKE 1 EVERY 4 TO 6 HOURS NEEDED 11/09 completed Not Available Not Available Not Available benzonatate 100 mg capsule TAKE 2 CAPSULES BY MOUTH 3 TIMES A DAY NEEDED FOR COUGH active Not Available Not Available No t Available pseudoephed rine-guaife nesin ER 80-700 mg tablet,exte nded release DO NOT DRIVE WHILE TAKING THIS MEDICATIO N 11/09 completed Statu s: 'Curr ent'; Not Available Not Available Not Available sertraline 25 mg tablet PLEASE SEE ATTACHED FOR DETAILED DIRECTION S active Not Available Not Available No t Available buspirone 7.5 mg tablet TAKE 2 TABLETS BY MOUTH 3 TIMES A DAY active Not Available Not Available No t Available mupirocin 2 % topical ointment APPLY TOPICALLY TO THE AFFECTED AREAS THREE TIMES DAILY active Not Available Not Available No t Available estradiol 0.01% (0.1 mg/gram) vaginal cream INSERT 1 GM VAGINALLY DAILY AT BEDTIME active Not Available Not Available No t Available BuSpar 15 mg tablet Take 1 tablet twice a day by oral route. active Not Available Not Available No t Available hydroxyzine HCl 10 mg tablet TAKE 1 TABLET BY MOUTH 2 TIMES A DAY NEEDED FOR ANXIETY active Not Available Not Available No t Available valsartan 40 mg tablet TAKE 1 TABLET BY MOUTH EVERY DAY active Not Available Not Available No t Available clonazepam 0.5 mg disintegrat ing tablet Place 1 tablet twice a day by transling ual route. active Not Available Not Available No t Available topiramate 50 mg tablet TAKE 1 TABLET BY MOUTH TWICE A DAY FOR 90 DAYS active Not Available Not Available No t Available Benadryl active Not Available Not Avai lable Not Available fluticasone propionate Fluticaso ne Propionat e 0.005% Ointment 09/19 completed Statu s: 'Disc ontin ued'; Not Available Not Available Not Available oxycodone HCl-oxycodo ne-ASA oxyCODONE HCl 5MG Tablet 09/19 completed Statu s: 'Disc ontin ued'; Not Available Not Available Not Available Prolia 60 mg/mL subcutaneou s syringe active Not Available Not Available No t Available Repatha SureClick 140 mg/mL subcutaneou s pen injector 140 MG SUBCUTANE OUSLY EVERY 2 WEEKS FOR 90 DAYS active Not Available Not Available No t Available Sutab 1.479-0.188 -0.225 gram tablet DOSE 1 AFTER 5PM EVENING BEFORE PROCEDURE , DOSE 2 IS 6 HOURS PRIOR TO PROCEDURE TIME. active Not Available Not Available No t Available Vitals Date Recorded Body height Body mass index (BMI) Body weight Provider Name and Address Organization Details Last Updated DateTime 11/10/2023 165.608 cm 36.1 kg/m2 50092.14 g Nikki Park [facility] 11/10/2023 11:12:13 Date Recorded Body height Body mass index (BMI) Body weight Provider Name and Address Organization Details Last Updated DateTime 05/29/2024 165.608 cm 36.1 kg/m2 57615.14 g FRANSISCA BRAGA [facility] 05/29/2024 16:07:35 Social History None recorded. Functional Status None recorded. Mental Status None recorded. Family History Nothing Reported. Medical History Condition Response Allergies/Hayfever N Coronary Artery Disease N Anxiety/Depression N Emphysema N Thyroid Problems N COPD N Pacemaker N Anemia N Kidney/Bladder Problems N Vascular Disease N Heart Attack (MD) N Gastrointestinal Disease N Diabetes N Autoimmune disease N Bleeding Disorder N Orthotics N Arthritis N Seizures/Epilepsy N Blood Clot N AIDS/HIV N Congestive Heart Failure (CHF) N Acid Reflux (GERD) N Cancer N Stroke N Asthma N Peripheral Vascular Disease N Sleep Apnea N Hepatitis N Heart Disease N Rheumatoid Arthritis N Arrhythmia N Pulmonary Embolism N Fibromyalgia N Hypertension N Osteoporosis N Gynecological HistoryNo gynecological history recorded. Obstetrics History GPAL:G 0 P 0 0 0 0 Past Encounters Encounter ID Performer Location Encounter Start Date Encounter Closed Date Diagnosis/Indication Diagnosis SNOMED-CT Code Diagnosis ICD10 Code [id number] MD Elmer Guevara [address] [place] [address] 11/10/2023 10:35:13 11/30/2023 16:00:30 Closed fracture of fifth metatarsal bone 53021119 S92.355D [id number] MANPREET Mondragon [address] [place] [address] 05/29/2024 15:45:21 05/30/2024 09:51:59 Pain of left wrist 1040575480 91487 M25.532 Health Concerns Section Related Observation LastModified by Organization Detai ls LastModified Time None Recorded Concern Status LastModified by Organization Details LastModified Time None Recorded Advance Directives Directive None Recorded Payers Encounter Date Sequence Insurance Name Policy Number Policy Babin Covered Member ID Babin Member ID Guarantor Name 11/10/2023 1 [place]ICARE [place]: [facility] Kerry Ortega [id number] Kerry Ortega 11/10/2023 2 [facility] (MEDICARE SUPPLEMENT) Kerry Ortega [id number] Kerry Ortega 05/29/2024 1 [place] [facility] Kerry Ortega [id number] Kerry Ortega 05/29/2024 2 [facility] (MEDICARE SUPPLEMENT) Kerry Ortega [id number] Kerry Ortega Notes Date Note Type Note Provider Name a nd Address Organization Details Recorded Time 05/29/2024 text/html Richard Mondragon [address], [place], [address], [facility] 06/19/2024 17:19:34 OBGyn Episode No OBEpisode recorded.
== END ==
LOC: HO.CARD 10:39
PROVIDERS: PCP Internal Medicine; Visit Provider Internal Medicine Cardiovascular Disease
DX: I71.20 Thoracic aortic aneurysm, without rupture, unspecified (principal)
CPT/HCPCS: 93306

== ENCOUNTER → 2024-07-09 10:46 | Outpatient (BNV) | payer MEDICARE, OTHER, SELFPAY | PROVIDERS: PCP Internal Medicine; Visit Provider Internal Medicine | DX: I35.1 Nonrheumatic aortic (valve) insufficiency (principal); I71.21 Aneurysm of the ascending aorta, without rupture | CPT/HCPCS: 93306 ==

== ENCOUNTER 2024-08-12 10:57 | Outpatient (AMB) | payer MEDICARE, OTHER, SELFPAY ==
--- NOTE | 2024-08-12 11:22 | MHC.OFFVIS ---
Vital Signs 08/12/24 11:23 Height 5 ft 6 in Weight 212 lb BMI 34.2 BMI Reason not done Patient refused/unable BP 120/62 Blood Pressure Location Lt brachial Position Sitting Pulse 68 Pulse Source Monitor Intake Visit Reasons: 1 yr f/up s/p echo Allergies amlodipine Allergy (Severe, Verified 09/06/23 15:52) Angioedema alirocumab [From Praluent Pen] Allergy (Intermediate, Verified 06/29/20 15:16) rash amoxicillin [Augmentin] Allergy (Unknown, Verified 06/29/20 10:26) unknown atorvastatin [Lipitor] Allergy (Unknown, Verified 05/30/19 00:00) myalgia cephalexin [Keflex] Allergy (Unknown, Verified 06/29/20 10:26) unknown clavulanic acid [Augmentin] Allergy (Unknown, Verified 06/29/20 10:26) unknown cyclobenzaprine [From Flexeril] Allergy (Unknown, Verified 06/29/20 10:) unknown ezetimibe [Zetia] Allergy (Unknown, Verified 05/30/19 00:00) myalgia fentanyl Allergy (Unknown, Verified 06/29/20 10:26) unknown lamotrigine [From Lamictal] Allergy (Unknown, Unverified 04/23/20 17:57) ANAPHYLAXIS latex [Latex] Allergy (Unknown, Unverified 04/23/20 17:57) HIVES metaxalone [From Skelaxin] Allergy (Unknown, Unverified 04/23/20 17:57) ANAPHYLAXIS montelukast [Singulair] Allergy (Unknown, Verified 06/29/20 10:26) unknown naratriptan Allergy (Unknown, Verified 06/29/20 10:26) unknown oxcarbazepine [Trileptal] Allergy (Unknown, Verified 06/29/20 10:26) unknown pneumococcal vaccine [Pneumococcal Vaccine] Allergy (Unknown, Unverified 04/23/20 17:57) SWELLING pravastatin Allergy (Unknown, Verified 05/30/19 00:00) myalgia rosuvastatin [Crestor] Allergy (Unknown, Verified 05/30/19 00:00) myalgia simvastatin Allergy (Unknown, Verified 05/30/19 00:00) myalgia Sulfa (Sulfonamide Antibiotics) Allergy (Unknown, Verified 06/29/20 10:26) unknown sumatriptan [From Imitrex] Allergy (Unknown, Unverified 04/23/20 17:57) INVOLUNTARY SPASMS trimethoprim [From Bactrim] Allergy (Unknown, Unverified 04/23/20 17:57) ANAPHYLAXIS From Keflex Allergy (Unknown, Uncoded 04/23/20 17:57) ANAPHYLAXIS From Singulair Allergy (Unknown, Uncoded 04/23/20 17:57) ANAPHYLAXIS From Tolectin Allergy (Unknown, Uncoded 04/23/20 17:57) HIVES Latex Gloves Allergy (Unknown, Uncoded 06/29/20 10:26) Unknown Mycelex Allergy (Unknown, Uncoded 06/29/20 10:26) unknown Mysoline Allergy (Unknown, Uncoded 06/29/20 10:26) unknown Medication List - Last Reconciled 08/12/24 by Karri Presley MD almotriptan malate 12.5 mg PO Q4H PRN buspirone 15 mg PO TID clonazepam 0.5 mg PO PRN denosumab mg subcut epinephrine IM evolocumab (Repatha SureClick) 140 mg subcut Q2W 90 days melatonin 3 mg PO .qhs metoprolol succinate ER 50 mg PO DAILY mupirocin 2% topical TID omeprazole 40 mg PO sertraline 150 mg PO DAILY tizanidine 6 mg PO PRN topiramate 50 mg PO BID valsartan 80 mg PO BID HPI Comments Details: Kerry comes for follow-up. He has been doing well from cardiac perspective. Most recent lipid panel has been well controlled. She denies any cardiac symptoms. Denies any shortness of breath, orthopnea, PND. Her echocardiogram shows normal LV ejection fraction with mildly dilated ascending aorta which is stable with mild aortic regurgitation. Denies any exertional chest pain. No worsening shortness of breath, orthopnea, PND. No prolonged palpitation irregular heartbeat. Takes all her medications. Says a blood pressures been very well controlled on current dose of valsartan. [facility] Medical History Bifascicular block PVCs (premature ventricular contractions) Selective immunoglobulin A deficiency Statin intolerance Heterozygous familial hypercholesterolemia Aortic regurgitation Ascending aortic aneurysm Surgical History History of laparoscopic cholecystectomy (~11/2018) Family History Father History of heart bypass surgery CVD (cardiovascular disease) Mother No problems noted. Review of Systems Const Denies weakness ENT Denies dizziness Card Denies chest pain, Denies chest pain with activity, Denies syncope, Denies rapid heart rate, Denies pedal edema, Denies edema, Denies leg edema, Denies lightheadedness, Denies palpitations, Denies dyspnea, Denies dyspnea on exertion and Denies orthopnea Resp Denies cough, Denies dyspnea and Denies dyspnea on exertion GI Denies hematochezia and Denies change in stool character Musc Denies abnormal gait, Denies muscle cramps, Denies muscle weakness, Denies numbness, Denies radiating pain into limb and Denies tingling Neuro Denies abnormal gait, Denies dizziness, Denies syncope, Denies numbness, Denies tingling and Denies weakness Endo Denies palpitations Physical Exam Vital Signs: Last Vital Signs Pulse 68 08/12/24 11:23 BP 120/62 08/12/24 11:23 BMI result Body Mass Index 34.2 Const General: cooperative, comfortable, alert and awake Nutritional Appearance: obese Orientation/consciousness: patient oriented x3 Limitations: no limitations Eyes General: appearance normal, both eyes and all related structures Neck Neck: Yes trachea midline, Yes supple and Yes no JVD Carotids: other ( no carotid bruit) Chest Chest palpation & inspection: normal inspection of the chest Resp Effort & Inspection: normal respiratory effort Auscultation: clear to auscultation bilaterally Cardio Palpation: normal PMI Rate: regular rate Rhythm: regular rhythm Heart sounds: S1 normal heart sound present, S2 normal heart sound present and Murmur heart sound present ( early diastolic murmur best heard in the left intercostal space in leaning) Peripheral pulses: Peripheral pulses 2+ throughout GI Inspection: Yes obesity Auscultation: normal bowel sounds Skin General skin exam: no rashes or lesions noted Neuro General: patient oriented x3 and no focal motor deficits Extrem General: Yes no clubbing, cyanosis or edema Psych Appearance: grossly normal Affect: Anxious affect present Office Procedures EKG Details: EKG shows normal sinus rhythm with right bundle-branch block and left anterior fascicular block, consistent with bifascicular block, unchanged [id number], Complete Assessment & Plan Assessment & Plan (1) Ascending aortic aneurysm: Code(s): I71.2 - Thoracic aortic aneurysm, without rupture Category: Medical Plan: Patient mild ascending aortic aneurysm which has remained stable. She was familial history of aortic aneurysm although this is not been proven. Genetic analysis been negative. Continue annual check on ascending aorta by echocardiogram. Continue aggressive risk factor modification aggressive blood pressure control as well as aggressive lipid management which is well optimized. Follow-up echocardiogram in 1 year's time. Advised to avoid sudden strenuous isometric exercise. (2) Aortic regurgitation: Code(s): I35.1 - Nonrheumatic aortic (valve) insufficiency Category: Medical Plan: Aortic regurgitation secondary to ascending aortic aneurysm. This has remained stable. No interventions required. Will continue monitor by echocardiogram on annual basis. (3) Labile blood pressure: Code(s): R09.89 - Other specified symptoms and signs involving the circulatory and respiratory systems Category: Medical Plan: Significantly labile blood pressure although well controlled on current metoprolol and valsartan therapy. Continue both. Advised stress mitigation strategies. Low-salt diet was discussed. Target goal blood pressure less than 130/84. (4) Heterozygous familial hypercholesterolemia: Code(s): E78.01 - Familial hypercholesterolemia Category: Medical Plan: Significant hyperlipidemia which is well optimized on Repatha therapy. She has done well with the same. Advised to continue the same. Importance of lipid management discussed. Advised lipid panel near future. (5) Bifascicular block: Code(s): I45.2 - Bifascicular block Category: Medical Plan: Bifascicular block which has remained stable. No interventions required. Will follow up in the clinic in 1 year's time, sooner p.r.n.. Thank you for allowing me to partake in her care Orders: Orders CA echo transthoracic complete 11 Months I71.2 - Thoracic aortic aneurysm, without rupture Lipid Panel Today E78.01 - Familial hypercholesterolemia Coding Level of Care Code Est Pt Level 4 (63270) Complex EM visit Add On G2211 Diagnoses Ascending aortic aneurysm I71.2 Aortic regurgitation I35.1 Labile blood pressure R09.89 Heterozygous familial hypercholesterolemia E78.01 Bifascicular block I45.2 CPT Codes EKG - CPT: 04985-[id number], Complete ([id number])
[2024-08-12 11:23] VITALS: BP 120/62; PULSE 68; BMI 34.2
== END 2024-08-12 12:37 | disposition home or self-care (01) ==
PROVIDERS: PCP Internal Medicine; Visit Provider Internal Medicine Cardiovascular Disease
DX: I71.20 Thoracic aortic aneurysm, without rupture, unspecified (principal); I35.1 Nonrheumatic aortic (valve) insufficiency; R09.89 Other specified symptoms and signs involving the circulatory and respiratory systems; E78.01 Familial hypercholesterolemia; I45.2 Bifascicular block
CPT/HCPCS: 93010; 99214; G2211

== ENCOUNTER → 2024-08-12 10:57 | Outpatient (BNVA) | payer MEDICARE, OTHER, SELFPAY | PROVIDERS: PCP Internal Medicine; Visit Provider Internal Medicine Cardiovascular Disease | DX: I71.21 Aneurysm of the ascending aorta, without rupture (principal); I35.1 Nonrheumatic aortic (valve) insufficiency; I45.2 Bifascicular block; E78.01 Familial hypercholesterolemia; R09.89 Other specified symptoms and signs involving the circulatory and respiratory systems; R94.31 Abnormal electrocardiogram [ECG] [EKG] | CPT/HCPCS: 93005; 99212 ==

== ENCOUNTER 2024-08-23 06:35 | Outpatient (REF) | payer MEDICARE, OTHER, SELFPAY ==
[2024-08-23 10:36] LABS: Cholesterol 201 mg/dL (<200); HDL Cholesterol 62 mg/dL (>40); LDL Cholesterol Calculated 113 mg/dL (<100); Triglycerides 133 mg/dL (<150)
== END 2024-08-23 06:36 | disposition home or self-care (01) ==
LOC: HO.HMGCLDS 06:35
PROVIDERS: PCP Internal Medicine; Visit Provider Internal Medicine Cardiovascular Disease
DX: E78.01 Familial hypercholesterolemia (principal)
CPT/HCPCS: 36415; 80061

== ENCOUNTER 2025-03-27 10:54 | Outpatient (AMB) | payer MEDICARE, OTHER, SELFPAY ==
--- NOTE | 2025-03-27 11:30 | MHC.OFFVIS ---
Vital Signs 03/27/25 11:31 Height 5 ft 6 in Intake Visit Reasons: 3m Allergies amlodipine Allergy (Severe, Verified 03/27/25 11:36) Angioedema alirocumab (From Praluent Pen) Allergy (Intermediate, Verified 03/27/25 11:36) rash amoxicillin (Augmentin) Allergy (Unknown, Verified 03/27/25 11:36) unknown atorvastatin (Lipitor) Allergy (Unknown, Verified 03/27/25 11:36) myalgia cephalexin (Keflex) Allergy (Unknown, Verified 03/27/25 11:36) unknown clavulanic acid (Augmentin) Allergy (Unknown, Verified 03/27/25 11:36) unknown cyclobenzaprine (From Flexeril) Allergy (Unknown, Verified 03/27/25 11:36) unknown ezetimibe (Zetia) Allergy (Unknown, Verified 03/27/25 11:36) myalgia fentanyl Allergy (Unknown, Verified 03/27/25 11:36) unknown lamotrigine (From Lamictal) Allergy (Unknown, Unverified 03/27/25 11:36) ANAPHYLAXIS latex (Latex) Allergy (Unknown, Unverified 03/27/25 11:36) HIVES metaxalone (From Skelaxin) Allergy (Unknown, Unverified 03/27/25 11:36) ANAPHYLAXIS montelukast (Singulair) Allergy (Unknown, Verified 03/27/25 11:36) unknown naratriptan Allergy (Unknown, Verified 03/27/25 11:36) unknown oxcarbazepine (Trileptal) Allergy (Unknown, Verified 03/27/25 11:36) unknown pneumococcal vaccine (Pneumococcal Vaccine) Allergy (Unknown, Unverified 03/27/25 11:36) SWELLING pravastatin Allergy (Unknown, Verified 03/27/25 11:36) myalgia rosuvastatin (Crestor) Allergy (Unknown, Verified 03/27/25 11:36) myalgia simvastatin Allergy (Unknown, Verified 03/27/25 11:36) myalgia Sulfa (Sulfonamide Antibiotics) Allergy (Unknown, Verified 03/27/25 11:36) unknown sumatriptan (From Imitrex) Allergy (Unknown, Unverified 03/27/25 11:36) INVOLUNTARY SPASMS trimethoprim (From Bactrim) Allergy (Unknown, Unverified 03/27/25 11:36) ANAPHYLAXIS From Keflex Allergy (Unknown, Uncoded 03/27/25 11:36) ANAPHYLAXIS From Singulair Allergy (Unknown, Uncoded 03/27/25 11:36) ANAPHYLAXIS From Tolectin Allergy (Unknown, Uncoded 03/27/25 11:36) HIVES Latex Gloves Allergy (Unknown, Uncoded 03/27/25 11:36) Unknown Mycelex Allergy (Unknown, Uncoded 03/27/25 11:36) unknown Mysoline Allergy (Unknown, Uncoded 03/27/25 11:36) unknown Medication List - Last Reconciled 03/27/25 by Liv Meyer, MARYURI almotriptan malate 12.5 mg PO Q4H PRN almotriptan malate take 1 tab (12.5 mg) at onset of migraine; if no relief may repeat 1 tab in 2 hrs; MAX 2 tabs (25 mg)/24 hr PO buspirone 15 mg PO TID clonazepam 0.5 mg PO PRN denosumab mg subcut epinephrine IM evolocumab (Repatha SureClick) 140 mg subcut Q2W melatonin 3 mg PO .qhs metoprolol succinate ER 50 mg PO DAILY mupirocin 2% topical TID omeprazole 40 mg PO sertraline 150 mg PO DAILY tizanidine 4 mg PO TID PRN topiramate 50 mg orally 1/2 tab in AM and 1 tab at bedtime; valsartan 80 mg PO BID HPI Comments Details: She was doing okay with decreased dose of topiramate. No migraines in the last 3 months. She was interested in trying to reduce dose further. Sleep was okay. Mood was okay, working with therapist and pyschiatrist. Had 5 neck muscle trigger points injections at pain management for her neck pain and restriction of movement to left in 2021. Tripped and fell in 05/2022 with left orbital rim injury, knee injury, and neck is slightly sore on turning to the left. Had a C spine fracture after falling off step stool at the end of 03/2021, was in a cervical rigid brace. Some post head pain and jaw pain since the C spine fracture. Cardiac work up was good and she has been stable. No hand coordination symptoms. No slurring or dysphagia. Had vertebroplasty for fracture T7 from lifting in the past. CT with 38 small areas of calcification. She has a history of tremulousness that fluctuates, low back pain with a compression fracture at T11 treated with percutaneous vertebroplasty. Has osteoporosis. She has urinary incontinence and has been seeing a urologist. Fell on ice and broke her 5th rib. [facility] Medical History Bifascicular block PVCs (premature ventricular contractions) Selective immunoglobulin A deficiency Statin intolerance Heterozygous familial hypercholesterolemia Aortic regurgitation Ascending aortic aneurysm Surgical History History of laparoscopic cholecystectomy (~11/2018) Family History Father History of heart bypass surgery CVD (cardiovascular disease) Mother No problems noted. Review of Systems Const Denies chills, Denies daytime sleepiness, Denies difficulty sleeping, Denies fatigue, Denies fever(s), Denies frequent falls, Reports headache(s), Denies increased appetite, Denies poor appetite, Denies snoring, Denies weakness, Denies weight gain and Denies weight loss Eyes Denies loss of vision ENT Denies vertigo, Denies dizziness, Reports headache(s) and Denies neck pain Card Denies chest pain at rest, Denies chest pain with activity, Denies syncope, Denies leg edema, Denies palpitations, Denies dyspnea and Denies dyspnea on exertion Resp Denies cough, Denies dyspnea, Denies dyspnea on exertion and Denies snoring GI Denies abdominal pain, Denies constipation, Denies heartburn, Denies diarrhea and Denies nausea Denies urinary frequency, Denies urinary incontinence and Denies urinary urgency Musc Denies abnormal gait, Denies back pain, Denies myalgias, Denies arthralgias, Denies neck pain, Denies numbness and Denies tingling Neuro Denies abnormal gait, Denies vertigo, Denies dizziness, Denies syncope, Denies frequent falls, Reports headache(s), Denies lack of coordination, Denies loss of vision, Denies memory loss, Denies numbness, Denies Other visual disturbances, Denies restless legs, Denies seizure-like activity, Denies tingling, Denies paresthesias, Denies tremor(s) and Denies weakness Psych Reports anxiety, Denies depression, Denies auditory hallucinations, Denies memory loss and Denies visual hallucinations Endo Denies fatigue and Denies palpitations Physical Exam Const Other: General Appearance:? normal, in no acute distress. Heart:? S1, S2 normal, no murmurs. Lungs:? clear anteriorly and posteriorly. Musculoskeletal:? normal. Extremities:? no edema. Psych:? alert, oriented, cognitive function intact, cooperative with exam. Neuro Other: Abnormal Neurological Findings:?Minimal tremor of extended UE. Minimal swaying on Rhomberg. Mental Status: alert and oriented X 3. Normal attention, orientation, memory, and affect. Cranial Nerves: Pupils are equal, round, and reactive to light. External ocular muscles are intact. Visual purcell are full, no ptosis. Face is symmetrical, no facial weakness or droop. Facial sensations are normal. Tongue protrudes in midline. Palate elevates symmetrically. Shoulder shrugging is normal Motor Examination: Normal muscle tone, bulk and strength. No atrophy or fasciculations. No drift of the extended upper extremities. DTR 2+. Plantars are flexor. Sensory Exam: Normal light touch, temperature, pinprick, vibration, and joint-position sensations. Minimal swaying on Rhomberg. Coordination: No ataxia. No titubation. Gait Exam: Within normal limits. Cerebellar Signs: [id number] is okay. Extrapyramidal System: Tremor as above. No rigidity with normal facial expressions. No bradykinesia. No bradyphrenia. Normal arm swing and posture. No propulsion or retropulsion. Speech: Normal. No dysphasia or dysarthria. Assessment & Plan Assessment & Plan (1) Migraine: Code(s): G43.909 - Migraine, unspecified, not intractable, without status migrainosus Category: Medical Qualifiers: Migraine type: unspecified Status migrainosus presence: without status migrainosus Intractability: not intractable Qualified Code(s): G43.909 - Migraine, unspecified, not intractable, without status migrainosus Plan: Decrease topiramate 25mg 1 tablet twice a day. Continue Axert 12.5mg 1 tablet as needed for migraine (2) Abnormal involuntary movements: Code(s): R25.9 - Unspecified abnormal involuntary movements Category: Medical (3) Low back pain: Code(s): M54.50 - Low back pain, unspecified Category: Medical Qualifiers: Chronicity: chronic Back pain laterality: unspecified Sciatica presence: unspecified whether sciatica present Qualified Code(s): M54.50 - Low back pain, unspecified; G89.29 - Other chronic pain Plan Meds tried: sumatriptan (had reaction) Medications: New topiramate 25 mg PO BID 180 tabs 0RF 90 days Coding Level of Care Code Est Pt Level 4 (42370) Diagnoses Migraine without status migrainosus, not intractable, unspecified migraine type G43.909 Migraine type: unspecified Status migrainosus presence: without status migrainosus Intractability: not intractable Abnormal involuntary movements R25.9 Chronic low back pain, unspecified back pain laterality, unspecified whether sciatica present M54.50; G89.29 Chronicity: chronic Back pain laterality: unspecified Sciatica presence: unspecified whether sciatica present
--- OUTSIDE RECORDS SUMMARY | 2025-03-27 12:26 | XMS_ITS | Clinical Summary ---
Author Organization [facility] Address [address] [place] [id number] Phone Care Team Providers Care Cardiology Physician Assistant Name Role Phone Thomas Garcia MD Primary Care Provide r Allergies Active Allergy Reactions Criticality Noted Date Comments Alirocumab 06/27/2024 Amoxicillin-Pot Clavulanate 06/27/2024 Has not recollection of what the reaction was - it was many years ago and she doesn't think it was anaphylaxis. Azithromycin 06/27/2024 She isn't sure what the reaction to this was, but it wasn't anaphylaxis in her memory. Cephalexin 06/27/2024 Patient reports that she recalls developing anaphylaxis to Keflex about 30 years ago - she did not need hospitalization for this and she can't remember the details. Clindamycin Hcl Angioedema Medium 08/16/2018 She reports that her lips and tongue started to swell after the 2-3rd dose after her wisdom teeth were pulled in December 2017. Crestor (Rosuvastatin) Musculoskeletal Pain,Myalgia Low 05/26/2016 Pains stopped within 2-3 weeks after stopping the Crestor. Erythromycin 06/27/2024 She can't remember what the reaction to erythromycin was as it was a long time ago. Doesn't think it was anaphylaxis. Ezetimibe 06/27/2024 Sumatriptan 06/27/2024 Reports that it caused chest pain and palpitations. Lamotrigine 06/27/2024 Latex Rash 02/04/2008 Montelukast Angioedema 02/04/2008 Sulfamethoxazole-Tr imethoprim 06/27/2024 She thinks that it caused a rash. Doesn't remember the details. Medications almotriptan (AXERT) 12.5 MG tablet Take 12.5 mg by mouth. 0 Active prochlorperazine (COMPAZINE) 10 MG tablet Take 10 mg by mouth every 6 (six) hours as needed. 1 Active EPINEPHrine (EPIPEN) 0.3 mg/0.3 mL (1:1,000) AtIn Inject 0.3 mg into the muscle. 9 Active clonazePAM (KLONOPIN) 0.5 MG tablet Take 0.5 mg by mouth daily. 0 Active topiramate (TOPAMAX) 50 MG tablet Take 50 mg by mouth 2 (two) times a day. Taking 50 mg each morning and night 0 Active sertraline (ZOLOFT) 100 MG tablet Take 150 mg by mouth daily. Active triamcinolone (NASACORT AQ) 55 mcg/actuation nasal inhaler 2 sprays by Nasal route daily. Active metoprolol succinate (TOPROL-XL) 50 MG 24 hr tablet Take 50 mg by mouth daily. Active oxyCODONE (OXYCONTIN) 20 mg 12 hr tablet Take 20 mg by mouth 3 (three) times a day. Active oxyCODONE HCl 20 mg Tab Take 20 mg by mouth every 4 (four) hours as needed. Active tiZANidine (ZANAFLEX) 4 MG capsule Take 4 mg by mouth 3 (three) times a day. Active busPIRone (BUSPAR) 10 MG tablet Take 15 mg by mouth 3 (three) times a day. Active estradiol (ESTRACE) 0.01 % (0.1 mg/gram) vaginal cream Place 2 g vaginally daily. Active denosumab (PROLIA) 60 mg/mL Syrg subcutaneous syringe Inject 60 mg under the skin once. Active diphenhydrAMINE (BENADRYL) 25 mg tablet Take 25 mg by mouth 2 (two) times a day as needed. Active evolocumab (REPATHA SURECLICK) 140 mg/mL PnIj subcutaneous pen injector Inject 140 mg under the skin every 14 (fourteen) days. Active omeprazole (PRILOSEC) 20 MG capsule Take 40 mg by mouth daily. Active melatonin 3 mg Tab Take 3 mg by mouth nightly at bedtime. Active mupirocin (BACTROBAN) 2 % ointment Apply topically 3 (three) times a day as needed. Active sodium chloride (SALINE NASAL MIST NASL) by Nasal route. XLEAR with xylitol. Active cetirizine (ZYRTEC) 10 MG tablet Take 10 mg by mouth daily as needed for allergies. Active cholecalciferol (VITAMIN D3) 25 MCG (1,000 unit) tablet Take 1,000 Units by mouth daily. Active valsartan (DIOVAN) 80 MG tablet Take 80 mg by mouth 2 (two) times a day. Active Active Problems Problem Noted Date Diagnosed Date Immunodeficiency disorder, selective immunoglobu mary 07/06/2017 Chronic rhinitis 07/06/2017 Vitamin D insufficiency 07/06/2017 Hypertension 06/22/2017 Low vitamin D level 05/26/2016 Osteoporosis 05/26/2016 Drug allergy 05/26/2016 Chronic sinusitis 04/25/2012 Overview (09/26/2014): Chronic sinusitis Hypogammaglobulinemia 01/30/2008 Overview (09/26/2014): Selective IgG1 deficiency; ICD-9 code: 279.03 Resolved Problems Problem Noted Date Diagnosed Date Resolved Date Acute sinusitis 01/30/2008 04/12/2012 Overview (09/26/2014): Acute sinusitis Immunizations Immunization Administration Dates Next Due Influenza, Unspecified Formulation 05/07/2016, Pneumococcal conjugate PCV13 05/26/2016 Tdap 05/26/2016 Varicella 04/25/2012 Family History Medical History Relation Comments Immunodeficiency Neg Hx Social History Tobacco Use Types Packs/Day Years Used Date Smoking Tobacco: Never Smokeless Tobacco: Never Tobacco Cessation:Counseling Given: Not Answered Education Answer Date Recorded Are you interested in more education? Not on jayy e 12/01/2022 Are you concerned about learning? Not on file 12/01/2022 No 12/01/2022 No 12/01/2022 Digital Access Answer Date Recorded No 01/02/2023 No 01/02/2023 No 01/02/2023 Reliable internet access at home? Not on file 01/02/2023 Device with a working camera? Not on file Comments Unknown Sex and Gender Information Value Date Recorded Sex Assigned at Not on file Legal Sex Female 7:20 PM EST Gender Identity Not on file Sexual Orientation Not on file Last Filed Vital Signs Vital Sign Reading Time Taken Comments Blood Pressure 136/62 06/27/2024 9:41 AM EST Pulse 64 06/27/2024 9:41 AM EST Temperature 36.7 C (98 F) 08/22/2019 1:03 PM EST Respiratory Rate - - Oxygen Saturation 100% 06/27/2024 9:41 AM EST Inhaled Oxygen Concentration - - Weight 98.9 kg (218 lb) 06/27/2024 9:41 AM EST Height 165.7 cm (5' 5.25 ) 06/27/2024 9:41 AM ES T Body Mass Index 36 06/27/2024 9:41 AM EST Plan of Treatment Health Maintenance Due Date Last Done Comments CREATININE LEVEL 1951 LIPID PANEL 1951 POTASSIUM LEVEL 1951 DEPRESSION SCREENING 1963 HEPATITIS C SCREENING 1969 MAMMOGRAM 1991 COLOGUARD 1996 COLONOSCOPY 1996 COLORECTAL CANCER SCREENING 1996 FIT TEST 1996 FOBT 1996 SIGMOIDOSCOPY 1996 VIRTUAL COLONOSCOPY 1996 RSV VACCINE (1 - Risk 60-74 years 1-dose series) 2011 OSTEOPOROSIS SCREENING INITIAL (ONE-TIME) 2016 COVID-19 VACCINE ( season) 2024 05/08/2023, 05/16/2022, 05/31/2021, Additional history exists BLOOD PRESSURE 12/25/2024 06/27/2024 Adult Td,Tdap Booster 05/26/2026 05/26/2016 , 07/28/2011, 07/24/2006 PNEUMOCOCCAL VACCINES (50+ years) Completed 08/30/2018, 07/26/2018, 05/26/2016, Additional history exists ZOSTER VACCINES Completed 02/13/2019, 03/0 03/2019, 04/07/2012 SMOKING STATUS SCREENING (Once After 26 Yrs) Completed 12/22/2022 HEPATITIS A VACCINES Aged Out No long er eligible based on patient's age to complete this topic HIB VACCINES Aged Out No longer eligi ble based on patient's age to complete this topic MENINGOCOCCAL VACCINES (ACWY) Aged Out No longer eligible based on patient's age to complete this topic MENINGOCOCCAL VACCINES (B) Aged Out N o longer eligible based on patient's age to complete this topic Medical Devices Not on file Insurance MEDICARE PART A & B [facility] MEDICARE ENHANCE SUPPLEMENT MEDICARE PART A & [place] [address] [place] [address] MEDICARE ENHANCE SUPPLEMENT MEDICARE PART A & B [facility] MEDICARE ENHANCE SUPPLEMENT MEDICARE PART A & B [id number] [place] [address] MEDICARE ENHANCE SUPPLEMENT MEDICARE PART A & B [facility] MEDICARE ENHANCE SUPPLEMENT MEDICARE PART A & B [employer] MEDICARE ENHANCE SUPPLEMENT MEDICARE PART A & [place] [address] [place] [address] MEDICARE ENHANCE SUPPLEMENT MEDICARE PART A & B [facility] MEDICARE ENHANCE SUPPLEMENT MEDICARE PART A & B [employer] MEDICARE ENHANCE SUPPLEMENT Care Teams Cardiology Physician Assistant Relationship Specialty Start Date End Date Thomas Garcia MD [address] [place] [address] PCP - General Internal Medicine 08/16/18 Additional Source Comments The information contained in this document represents components of the legal health record. It is not the complete legal health record.[facility]
== END 2025-03-27 11:48 | disposition home or self-care (01) ==
PROVIDERS: PCP Internal Medicine; Referring Provider Internal Medicine; Visit Provider Registered Nurse
DX: G43.909 Migraine, unspecified, not intractable, without status migrainosus (principal); R25.9 Unspecified abnormal involuntary movements; M54.50 Low back pain, unspecified; G89.29 Other chronic pain
CPT/HCPCS: 99214

== ENCOUNTER → 2025-03-27 10:54 | Outpatient (BNVA) | payer MEDICARE, OTHER, SELFPAY | PROVIDERS: PCP Internal Medicine; Referring Provider Internal Medicine; Visit Provider Registered Nurse | DX: R25.9 Unspecified abnormal involuntary movements (principal); G43.909 Migraine, unspecified, not intractable, without status migrainosus; M54.50 Low back pain, unspecified; G89.29 Other chronic pain | CPT/HCPCS: 99212 ==

== ENCOUNTER 2025-07-10 10:44 | Outpatient (AMB) | payer MEDICARE, OTHER, SELFPAY ==
--- NOTE | 2025-07-10 10:49 | MHC.OFFVIS ---
Intake Visit Reasons: 4M Allergies amlodipine Allergy (Severe, Verified 07/10/25 11:11) Angioedema alirocumab (From Praluent Pen) Allergy (Intermediate, Verified 07/10/25 11:11) rash amoxicillin (Augmentin) Allergy (Unknown, Verified 07/10/25 11:11) unknown atorvastatin (Lipitor) Allergy (Unknown, Verified 07/10/25 11:11) myalgia cephalexin (Keflex) Allergy (Unknown, Verified 07/10/25 11:11) unknown clavulanic acid (Augmentin) Allergy (Unknown, Verified 07/10/25 11:11) unknown cyclobenzaprine (From Flexeril) Allergy (Unknown, Verified 07/10/25 11:11) unknown ezetimibe (Zetia) Allergy (Unknown, Verified 07/10/25 11:11) myalgia fentanyl Allergy (Unknown, Verified 07/10/25 11:11) unknown lamotrigine (From Lamictal) Allergy (Unknown, Unverified 07/10/25 11:11) ANAPHYLAXIS latex (Latex) Allergy (Unknown, Unverified 07/10/25 11:11) HIVES metaxalone (From Skelaxin) Allergy (Unknown, Unverified 07/10/25 11:11) ANAPHYLAXIS montelukast (Singulair) Allergy (Unknown, Verified 07/10/25 11:11) unknown naratriptan Allergy (Unknown, Verified 07/10/25 11:11) unknown oxcarbazepine (Trileptal) Allergy (Unknown, Verified 07/10/25 11:11) unknown pneumococcal vaccine (Pneumococcal Vaccine) Allergy (Unknown, Unverified 07/10/25 11:11) SWELLING pravastatin Allergy (Unknown, Verified 07/10/25 11:11) myalgia rosuvastatin (Crestor) Allergy (Unknown, Verified 07/10/25 11:11) myalgia simvastatin Allergy (Unknown, Verified 07/10/25 11:11) myalgia Sulfa (Sulfonamide Antibiotics) Allergy (Unknown, Verified 07/10/25 11:11) unknown sumatriptan (From Imitrex) Allergy (Unknown, Unverified 07/10/25 11:11) INVOLUNTARY SPASMS trimethoprim (From Bactrim) Allergy (Unknown, Unverified 07/10/25 11:11) ANAPHYLAXIS From Keflex Allergy (Unknown, Uncoded 07/10/25 11:11) ANAPHYLAXIS From Singulair Allergy (Unknown, Uncoded 07/10/25 11:11) ANAPHYLAXIS From Tolectin Allergy (Unknown, Uncoded 07/10/25 11:11) HIVES Latex Gloves Allergy (Unknown, Uncoded 07/10/25 11:11) Unknown Mycelex Allergy (Unknown, Uncoded 07/10/25 11:11) unknown Mysoline Allergy (Unknown, Uncoded 07/10/25 11:11) unknown Medication List - Last Reconciled 07/10/25 by Liv Meyer, MARYURI almotriptan malate take 1 tab (12.5 mg) at onset of migraine; if no relief may repeat 1 tab in 2 hrs; MAX 2 tabs (25 mg)/24 hr PO buspirone 15 mg PO TID clonazepam 0.5 mg PO PRN denosumab mg subcut epinephrine IM evolocumab (Repatha SureClick) 140 mg subcut Q2W melatonin 3 mg PO .qhs metoprolol succinate ER 50 mg PO DAILY mupirocin 2% topical TID omeprazole 40 mg PO sertraline 150 mg PO DAILY tizanidine 4 mg PO TID PRN topiramate 25 mg PO BID 90 days valsartan 80 mg PO BID HPI Comments Details: She was doing okay with topiramate 25mg twice a day. She had 2 migraines in the last 4 months with one being more mild-type headache after getting flu and COVID shots at same time. Axert as needed helps. Had recent eye exam with no significant changes. Has echo scheduled and follow up with cardiology in 08/2025. Sleep was okay. Mood was okay, although generally has a hard time around the holidays, working with therapist and psychiatrist. Had 5 neck muscle trigger points injections at pain management for her neck pain and restriction of movement to left in 2021. Tripped and fell in 05/2022 with left orbital rim injury, knee injury, and neck is slightly sore on turning to the left. Had a C spine fracture after falling off step stool at the end of 03/2021, was in a cervical rigid brace. Some post head pain and jaw pain since the C spine fracture. Cardiac work up was good and she has been stable. No hand coordination symptoms. No slurring or dysphagia. Had vertebroplasty for fracture T7 from lifting in the past. CT with 38 small areas of calcification. She has a history of tremulousness that fluctuates, low back pain with a compression fracture at T11 treated with percutaneous vertebroplasty. Has osteoporosis. She has urinary incontinence and has been seeing a urologist. Fell on ice and broke her 5th rib. [facility] Medical History Bifascicular block PVCs (premature ventricular contractions) Selective immunoglobulin A deficiency Statin intolerance Heterozygous familial hypercholesterolemia Aortic regurgitation Ascending aortic aneurysm Surgical History History of laparoscopic cholecystectomy (~11/2018) Family History Father History of heart bypass surgery CVD (cardiovascular disease) Mother No problems noted. Review of Systems Const Denies chills, Denies daytime sleepiness, Denies difficulty sleeping, Denies fatigue, Denies fever(s), Denies frequent falls, Reports headache(s), Denies increased appetite, Denies poor appetite, Denies snoring, Denies weakness, Denies weight gain and Denies weight loss Eyes Denies loss of vision ENT Denies vertigo, Denies dizziness, Reports headache(s) and Denies neck pain Card Denies chest pain at rest, Denies chest pain with activity, Denies syncope, Denies leg edema, Denies palpitations, Denies dyspnea and Denies dyspnea on exertion Resp Denies cough, Denies dyspnea, Denies dyspnea on exertion and Denies snoring GI Denies abdominal pain, Denies constipation, Denies heartburn, Denies diarrhea and Denies nausea Denies urinary frequency, Denies urinary incontinence and Denies urinary urgency Musc Denies abnormal gait, Denies back pain, Denies myalgias, Denies arthralgias, Denies neck pain, Denies numbness and Denies tingling Neuro Denies abnormal gait, Denies vertigo, Denies dizziness, Denies syncope, Denies frequent falls, Reports headache(s), Denies lack of coordination, Denies loss of vision, Denies memory loss, Denies numbness, Denies Other visual disturbances, Denies restless legs, Denies seizure-like activity, Denies tingling, Denies paresthesias, Denies tremor(s) and Denies weakness Psych Reports anxiety, Denies depression, Denies auditory hallucinations, Denies memory loss and Denies visual hallucinations Endo Denies fatigue and Denies palpitations Physical Exam Const Other: General Appearance:? normal, in no acute distress. Heart:? S1, S2 normal, no murmurs. Lungs:? clear anteriorly and posteriorly. Musculoskeletal:? normal. Extremities:? no edema. Psych:? alert, oriented, cognitive function intact, cooperative with exam. Neuro Other: Abnormal Neurological Findings:?Minimal tremor of extended UE. Minimal swaying on [place]omberg. Mental Status: alert and oriented X 3. Normal attention, orientation, memory, and affect. Cranial Nerves: Pupils are equal, round, and reactive to light. External ocular muscles are intact. Visual purcell are full, no ptosis. Face is symmetrical, no facial weakness or droop. Facial sensations are normal. Tongue protrudes in midline. Palate elevates symmetrically. Shoulder shrugging is normal Motor Examination: Normal muscle tone, bulk and strength. No atrophy or fasciculations. No drift of the extended upper extremities. DTR 2+. Plantars are flexor. Sensory Exam: Normal light touch, temperature, pinprick, vibration, and joint-position sensations. Minimal swaying on Rhomberg. Coordination: No ataxia. No titubation. Gait Exam: Within normal limits. Cerebellar Signs: [id number] is okay. Extrapyramidal System: Tremor as above. No rigidity with normal facial expressions. No bradykinesia. No bradyphrenia. Normal arm swing and posture. No propulsion or retropulsion. Speech: Normal. No dysphasia or dysarthria. Assessment & Plan Assessment & Plan (1) Migraine: Code(s): G43.909 - Migraine, unspecified, not intractable, without status migrainosus Category: Medical Qualifiers: Migraine type: unspecified Status migrainosus presence: without status migrainosus Intractability: not intractable Qualified Code(s): G43.909 - Migraine, unspecified, not intractable, without status migrainosus Plan: Continue topiramate 25mg 1 tablet twice a day. Continue Axert 12.5mg 1 tablet as needed for migraine. Follow up in 6 months or sooner as needed. (2) Abnormal involuntary movements: Code(s): R25.9 - Unspecified abnormal involuntary movements Category: Medical (3) Low back pain: Code(s): M54.50 - Low back pain, unspecified Category: Medical Qualifiers: Chronicity: chronic Back pain laterality: unspecified Sciatica presence: unspecified whether sciatica present Qualified Code(s): M54.50 - Low back pain, unspecified; G89.29 - Other chronic pain Plan Meds tried: sumatriptan (had reaction) Medications: Refilled topiramate 25 mg PO BID 180 tabs 1RF 90 days Coding Level of Care Code Est Pt Level 4 (44964) Diagnoses Migraine without status migrainosus, not intractable, unspecified migraine type G43.909 Migraine type: unspecified Status migrainosus presence: without status migrainosus Intractability: not intractable Abnormal involuntary movements R25.9 Chronic low back pain, unspecified back pain laterality, unspecified whether sciatica present M54.50; G89.29 Chronicity: chronic Back pain laterality: unspecified Sciatica presence: unspecified whether sciatica present
== END 2025-07-10 11:32 | disposition home or self-care (01) ==
LOC: HO.HSM 10:45
PROVIDERS: PCP Internal Medicine; Visit Provider Registered Nurse
DX: G43.909 Migraine, unspecified, not intractable, without status migrainosus (principal); R25.9 Unspecified abnormal involuntary movements; M54.50 Low back pain, unspecified; G89.29 Other chronic pain
CPT/HCPCS: 99214

== ENCOUNTER → 2025-07-10 10:44 | Outpatient (BNVA) | payer MEDICARE, OTHER, SELFPAY | PROVIDERS: PCP Internal Medicine; Visit Provider Registered Nurse | DX: G43.909 Migraine, unspecified, not intractable, without status migrainosus (principal); R25.9 Unspecified abnormal involuntary movements; M54.50 Low back pain, unspecified; G89.29 Other chronic pain | CPT/HCPCS: 99212 ==

== ENCOUNTER → 2025-07-14 10:39 | Outpatient (REF) | payer MEDICARE, OTHER, SELFPAY ==
--- NOTE | 2025-07-14 10:43 | CA_ITS ---
Transthoracic Echocardiogram Patient (Last, First, Middle): Kerry Ortega M Gender: F Date of : 1950 Age: 74 Procedure Date: 07/14/2025 Procedure Type: Transthoracic Echocardiogram Location: OP Height: 165. cm Weight: 94.35 kg BSA: 2.01 m2 Heart Rate: 57 bpm BP: 172 / 85 mmHg Engineering Secretary: KOLE Referring MD: Karri Presley MD Cardiac Sonographer: Karri Presley MD Symptoms: I71.2 - Thoracic aortic aneurysm, without rupture Study Quality: Adequate ECG Rhythm: Sinus Conclusions: - 1. Normal LV ejection fraction of 65-70% with impaired relaxation filling pattern 2. Mild aortic regurgitation 3. Mildly dilated ascending aorta at 4.3 cm 4. Normal RV systolic pressure 5 Findings Left Ventricle Normal left ventricular size, thickness, and systolic function. The visually estimated ejection fraction is between 65-70%. Spectral Doppler is indicative of an impaired relaxation filling pattern. Right Ventricle Normal right ventricular cavity size and systolic function. Atria Both atria are normal in size. Interatrial shunt cannot be excluded. Aortic Valve The aortic valve structure and function is likely normal. There is no aortic valve stenosis. There is mild aortic valve regurgitation. Mitral Valve There is mild anterior and posterior mitral leaflet thickening. There is trace mitral valve regurgitation. There is no mitral valve stenosis. Pulmonic Valve The pulmonic valve was not well visualized. Tricuspid Valve Likely normal tricuspid valve structure and function. There is trace tricuspid valve regurgitation. The right ventricular systolic pressure is normal. The right ventricular systolic pressure is 31 mmHg. Normal right atrial pressure. There is no evidence of pulmonary hypertension. Great Vessels The pulmonary artery was not well visualized. There is mild dilatation of the ascending aorta measuring 4.30 cm. Venous The inferior vena cava is normal in size and collapses greater than 50% with inspiration. Pericardium/Pleural There is no evidence of pericardial effusion. Prior Study Comparison No significant change compared to prior study dated: 07/09/2024. Measurements 2D Linear Measurements IVSd: 1.02 0.6-0.9/0.6-1.0 cm LVIDd: 5.05 3.9-5.3/4.2-5.9 cm LVIDd Index: 2.51 2.4-3.2/2.2-3.1 cm/m2 LVIDs: 3.23 2.0-3.6 cm LVPWd: 1.07 0.7-1.1 cm LA Diam: 3.50 2.7-3.8/3.0-4.0 cm LAIDs Index: 1.74 1.5-2.3 cm/m2 LV Mass: 244.61 67-162/88-224 g LV Mass Index: 121.70 43-95/49-115 g/m2 LVOT Diam: 2.00 3.0+(-)1.3 cm 2D Systolic Function EF 4C: 62.20 >55% EF 2C: 67.30 >55% EF BiP: 65.90 >55% Mitral Valve MV Pk E: 0.50 MV PK A: 0.68 MV Decel Time: 254.00 E/A: 0.70 E'Lateral: 8.92 E'Medial: 4.68 E/E' Med: 10.60 E/E' Lat: 5.60 PHT: 74.00 MVA PHT: 2.97 Decel [place]: 1.96 Aortic Valve AoV Pk Deshawn: 1.31 AoV Mn Deshawn: 0.91 AoV VTI: 0.31 AoV Pk Grad: 7.00 Aov Mn Grad: 4.00 LUIS Cont.VTI: 2.52 AI Pk Deshawn: 4.45 AI [place]: 2.88 LVOT LVOT Pk Deshawn: 1.04 LVOT Mn Deshawn: 0.70 LVOT VTI: 0.25 LVOT Pk Grad: 4.00 LVOT Mn Grad: 2.00 LVOT Diam: 2.00 LVOT Area: 3.14 Diastolic Function MV Pk E: 0.50 MV Pk A: 0.68 E/A: 0.70 E'Medial: 4.68 E/E' Med: 10.60 E' Laterial: 8.92 E/E' Lat: 5.60 Right Ventricle TAPSE (mm): 21.30 TVS' Deshawn: 8.70 Tricuspid Valve TR Pk Deshawn: 2.39 TR Pk Grad: 23.00 RA Press: 8.00 RVSP: 31.00 Great Vessels Aorta Sinus of Valsalva: 3.90 2.0-3.5 cm Ao Asc: 4.30 2.1-3.4 cm Ao Arch: 3.00 Pulmonary Valve PV Pk Deshawn: 0.77 Peak PV Grad: 2.00 Updated in Other Vendor System with Status of Final Karri Presley MD electronically signed on 07/14/2025 4:22:31 PM with status of Final
== END ==
LOC: HO.CARD 10:39
PROVIDERS: PCP Internal Medicine; Visit Provider Internal Medicine Cardiovascular Disease
DX: I71.20 Thoracic aortic aneurysm, without rupture, unspecified (principal)
CPT/HCPCS: 93306

== ENCOUNTER → 2025-07-14 10:43 | Outpatient (BNV) | payer MEDICARE, OTHER, SELFPAY | PROVIDERS: PCP Internal Medicine; Visit Provider Internal Medicine Cardiovascular Disease | DX: I35.1 Nonrheumatic aortic (valve) insufficiency (principal); I77.810 Thoracic aortic ectasia | CPT/HCPCS: 93306 ==